=== PATIENT | male | born 1980 | race Caucasian/White ===

== ENCOUNTER → 2020-05-27 | Outpatient (CLI) | payer OTHER ==
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
== END | disposition home or self-care (01) ==
LOC: RADXRMAIN 09:23
PROVIDERS: ATTEND Orthopaedic Surgery
DX: R93.6 Abnormal findings on diagnostic imaging of limbs (principal); M25.762 Osteophyte, left knee

== ENCOUNTER 2021-09-10 11:33 | Emergency (ER) | payer OTHER ==
--- NOTE | 2021-09-10 12:18 | ED ---
General Adult HPI - General Chief complaint: Abdominal Pain Stated complaint: Chest Pain Time Seen by Provider: 09/10/21 11:58 Source: patient, RN notes reviewed Mode of arrival: wheelchair Limitations: no limitations - History of Present Illness Initial comments: 41-year-old male presents to the emergency Department with complaints of generalized pain extending from the shoulders to the pelvis. Patient states this has been an ongoing issue for the past 2 weeks and has been seen by his primary care provider. Reports he is taking Motrin but does not feel like he has made any improvement. States pain is not worsened by activity but is somewhat eased by rest. Patient denies any injury, trauma, fever, chills, difficulty breathing, nausea, vomiting, diarrhea, dysuria, or hematuria. - Related Data Home Medications Medication Instructions Recorded Confirmed Albuterol Inhaler [Ventolin Hfa 2 puff INHALATION RT-Q6H PRN 09/10/21 09/10/21 Inhaler] Aspirin EC [Ecotrin Low Dose] 81 mg PO DAILY 09/10/21 09/10/21 Atorvastatin [Lipitor] 20 mg PO DAILY 09/10/21 09/10/21 Budesonide/Formoterol Fumarate 1 puff INHALATION RT-BID 09/10/21 09/10/21 [Symbicort 160-4.5 Mcg Inhaler] Fluticasone Nasal [place] [Flonase 1 spray EA NOSTRIL DAILY 09/10/21 09/10/21 Nasal [place]] Ibuprofen [Motrin] 800 mg PO Q8H PRN 09/10/21 09/10/21 Omeprazole 20 mg PO DAILY 09/10/21 09/10/21 buPROPion HCL [Wellbutrin XL] 300 mg PO DAILY 09/10/21 09/10/21 lisinopriL [Zestril] 20 mg PO DAILY 09/10/21 09/10/21 metFORMIN HCL [Glucophage] 500 mg PO BID 09/10/21 09/10/21 Previous Rx's Medication Instructions Recorded Ibuprofen [Motrin] 600 mg PO Q8HR PRN #30 tab 09/10/21 Allergies Allergy/AdvReac Type Severity Reaction Status Date / Time No Known Allergies Allergy Verified 09/10/21 12:37 Review of Systems ROS Statement: Those systems with pertinent positive or pertinent negative responses have been documented in the HPI. ROS Other: All systems not noted in ROS Statement are negative. Past Medical History Past Medical History: COPD, Diabetes Mellitus, Hypertension History of Any Multi-Drug Resistant Organisms: None Reported Past Surgical History: Orthopedic Surgery Past Psychological History: Depression Smoking Status: Former smoker Past Alcohol Use History: None Reported Past Drug Use History: None Reported General Exam Limitations: no limitations (This is a well-developed, well-nourished male in no acute distress. Initial temperature 98.0, pulse 94, respirations 20, blood pressure 190/78, pulse ox 96% on room air.) General appearance: alert, in no apparent distress Eye exam: Present: normal appearance, PERRL, EOMI. Absent: scleral icterus, conjunctival injection, periorbital swelling ENT exam: Present: normal exam, normal oropharynx, mucous membranes moist, TM's normal bilaterally Neck exam: Present: normal inspection. Absent: tenderness, meningismus, lymphadenopathy Respiratory exam: Present: normal lung sounds bilaterally. Absent: respiratory distress, wheezes, rales, rhonchi, stridor Cardiovascular Exam: Present: regular rate, normal rhythm, normal heart sounds. Absent: systolic murmur, diastolic murmur, rubs, gallop, clicks GI/Abdominal exam: Present: soft, normal bowel sounds. Absent: distended, tenderness, guarding, rebound, rigid Extremities exam: Present: normal inspection, full ROM, normal capillary refill. Absent: tenderness, pedal edema, joint swelling, calf tenderness Back exam: Present: normal inspection Neurological exam: Present: alert, oriented X3, CN II-XII intact Psychiatric exam: Present: normal affect, normal mood Skin exam: Present: warm, intact, normal color, diaphoretic (Patient is mildly diaphoretic) Course Vital Signs 09/10/21 09/10/21 09/10/21 11:41 13:11 15:47 Temperature 98.0 F 99.0 F Pulse Rate 94 93 89 Respiratory 20 16 18 Rate Blood Pressure 190/78 131/91 118/82 O2 Sat by Pulse 96 96 98 Oximetry 09/10/21 17:01 Temperature 98.8 F Pulse Rate 100 Respiratory 18 Rate Blood Pressure 120/76 O2 Sat by Pulse 96 Oximetry - Reevaluation(s) Reevaluation #1: 09/10/21 12:18 Patient denies need for any pain medication at this time. 09/10/21 15:01 Physical exam findings were discussed with my attending; patient will have CT thorax. Medical Decision Making - Medical Decision Making 41-year-old male presents to the emergency department for evaluation of torso pain. Upon exam, patient is well-appearing and in no acute distress. Pain is not localized to any area and when asked to point to painful region he gestures from his shoulder to his hips. Pain is not worsened with activity or palpation. Patient is mildly diaphoretic, though states this is normal for him. Patient's pain has been ongoing for the past 2 weeks and he has been seen by his primary care provider. Lab work was obtained and is unremarkable. X-rays of the chest, kidneys, ureter, and bladder show no acute process. CT shows no suspicious aortic abnormality. Findings were reviewed with patient. He will be discharged home to follow up with his primary care provider for a recheck. Return parameters were discussed in detail. Patient verbalizes understanding and agrees with this plan. This patient's care was discussed with my attending Dr. Bone. - Lab Data Result diagrams: 09/10/21 12:36 09/10/21 12:36 Lab Results 09/10/21 09/10/21 09/10/21 Range/Units 12:36 12:36 13:08 WBC 10.3 (3.8-10.6) k/uL RBC 5.50 (4.30-5.90) m/uL Hgb 16.1 (13.0-17.5) gm/dL Hct 46.0 (39.0-53.0) % MCV 83.5 (80.0-100.0) fL MCH 29.3 (25.0-35.0) pg MCHC 35.0 (31.0-37.0) g/dL RDW 12.3 (11.5-15.5) % Plt Count 275 (150-450) k/uL MPV 8.4 Neutrophils % 70 % Lymphocytes % 20 % Monocytes % 5 % Eosinophils % 2 % Basophils % 1 % Neutrophils # 7.3 (1.3-7.7) k/uL Lymphocytes # 2.1 (1.0-4.8) k/uL Monocytes # 0.6 (0-1.0) k/uL Eosinophils # 0.2 (0-0.7) k/uL Basophils # 0.1 (0-0.2) k/uL Sodium 135 L (137-145) mmol/L Potassium 4.4 (3.5-5.1) mmol/L Chloride 99 (98-107) mmol/L Carbon Dioxide 22 (22-30) mmol/L Anion Gap 14 mmol/L BUN 15 (9-20) mg/dL Creatinine 0.72 (0.66-1.25) mg/dL Est GFR (CKD-EPI)AfAm >90 (>60 ml/min/1.73 sqM) Est GFR (CKD-EPI)NonAf >90 (>60 ml/min/1.73 sqM) Glucose 171 H (74-99) mg/dL Calcium 10.0 (8.4-10.2) mg/dL Total Bilirubin 0.8 (0.2-1.3) mg/dL AST 72 H (17-59) U/L ALT 43 (4-49) U/L Alkaline Phosphatase 121 (38-126) U/L Troponin I (0.000-0.034) ng/mL Total Protein 7.9 (6.3-8.2) g/dL Albumin 4.5 (3.5-5.0) g/dL Lipase 79 (23-300) U/L Urine Color Yellow Urine Appearance Clear (Clear) Urine pH 6.0 (5.0-8.0) Ur Specific [place] 1.010 (1.001-1.035) Urine Protein Negative (Negative) Urine Glucose (UA) Negative (Negative) Urine Ketones Negative (Negative) Urine Blood Negative (Negative) Urine Nitrite Negative (Negative) Urine Bilirubin Negative (Negative) Urine Urobilinogen <2.0 (<2.0) mg/dL Ur Leukocyte Esterase Negative (Negative) 09/10/21 Range/Units 13:08 WBC (3.8-10.6) k/uL RBC (4.30-5.90) m/uL Hgb (13.0-17.5) gm/dL Hct (39.0-53.0) % MCV (80.0-100.0) fL MCH (25.0-35.0) pg MCHC (31.0-37.0) g/dL RDW (11.5-15.5) % Plt Count (150-450) k/uL MPV Neutrophils % % Lymphocytes % % Monocytes % % Eosinophils % % Basophils % % Neutrophils # (1.3-7.7) k/uL Lymphocytes # (1.0-4.8) k/uL Monocytes # (0-1.0) k/uL Eosinophils # (0-0.7) k/uL Basophils # (0-0.2) k/uL Sodium (137-145) mmol/L Potassium (3.5-5.1) mmol/L Chloride (98-107) mmol/L Carbon Dioxide (22-30) mmol/L Anion Gap mmol/L BUN (9-20) mg/dL Creatinine (0.66-1.25) mg/dL Est GFR (CKD-EPI)AfAm (>60 ml/min/1.73 sqM) Est GFR (CKD-EPI)NonAf (>60 ml/min/1.73 sqM) Glucose (74-99) mg/dL Calcium (8.4-10.2) mg/dL Total Bilirubin (0.2-1.3) mg/dL AST (17-59) U/L ALT (4-49) U/L Alkaline Phosphatase (38-126) U/L Troponin I <0.012 (0.000-0.034) ng/mL Total Protein (6.3-8.2) g/dL Albumin (3.5-5.0) g/dL Lipase (23-300) U/L Urine Color Urine Appearance (Clear) Urine pH (5.0-8.0) Ur Specific [place] (1.001-1.035) Urine Protein (Negative) Urine Glucose (UA) (Negative) Urine Ketones (Negative) Urine Blood (Negative) Urine Nitrite (Negative) Urine Bilirubin (Negative) Urine Urobilinogen (<2.0) mg/dL Ur Leukocyte Esterase (Negative) - EKG Data EKG shows normal: sinus rhythm Rate: normal EKG Comments: EKG was obtained at 1211 and shows normal sinus rhythm. Ventricular rate 83, DC interval 150, QRS duration 88, QT/QTc 360/423. - Radiology Data Radiology results: report reviewed, image reviewed Two-view chest x-ray was obtained. Report was reviewed in its entirety. Impression per Dr. Goel is no acute pulmonary process. KUB x-ray was obtained. Report was reviewed in its entirety. Impression per Dr. Goel is unremarkable abdomen. CT angiogram of the thoracic, abdominal, and pelvic aorta was obtained with contrast. Report was reviewed in its entirety. Impression per Dr. Goel is no suspicious aortic abnormality. Disposition Clinical Impression: Abdominal pain, Chest pain, non-cardiac Disposition: HOME SELF-CARE Condition: Stable Instructions (If sedation given, give patient instructions): Normal Exam (ED) Additional Instructions: Follow-up with primary care provider for recheck if symptoms persist. Return to the emergency department with any new, worsening, or concerning symptoms. Prescriptions: Ibuprofen [Motrin] 600 mg PO Q8HR PRN #30 tab PRN Reason: Pain Is patient prescribed a controlled substance at d/c from ED?: No Referrals: Enoch Kern MD [Primary Care Provider] - 1-2 days Time of Disposition: 16:42
--- NOTE | 2021-09-10 12:59 | XR ---
EXAMINATION TYPE: XR KUB DATE OF EXAM: 09/10/2021 COMPARISON: None INDICATION: Abdomen pain TECHNIQUE: Single view abdomen upright view FINDINGS: There is a normal bowel gas pattern. No suspicious air-fluid levels or differential air-fluid levels are present. No free air is present. Psoas margins are normal. No organomegaly is present. IMPRESSION: 1. Unremarkable Abdomen
[2021-09-10 13:00] LABS: Basophils # (A) 0.1 k/uL (0-0.2); Basophils % (A) 1 %; Eosinophils # (A) 0.2 k/uL (0-0.7); Eosinophils % (A) 2 %; HGB 16.1 gm/dL (13.0-17.5); Lymphocytes # (A) 2.1 k/uL (1.0-4.8); Lymphocytes % (A) 20 %; MCH 29.3 pg (25.0-35.0); MCV 83.5 fL (80.0-100.0); Mean Platelet Volume 8.4; Monocytes # (A) 0.6 k/uL (0-1.0); Monocytes % (A) 5 %; Neutrophils # (A) 7.3 k/uL (1.3-7.7); Neutrophils % (A) 70 %; Platelet Count 275 k/uL (150-450); RDW 12.3 % (11.5-15.5); WBC 10.3 k/uL (3.8-10.6)
--- NOTE | 2021-09-10 13:01 | XR ---
EXAMINATION TYPE: XR chest 2V DATE OF EXAM: 09/10/2021 COMPARISON: None INDICATION: Abdomen pain, chest pain, COPD TECHNIQUE: Frontal and lateral views of the chest are obtained. FINDINGS: The heart size is normal. The pulmonary vasculature is normal. The lungs are clear. There is an old right clavicular fracture. IMPRESSION: 1. No acute pulmonary process.
[2021-09-10 13:17] LABS: ALT 43 U/L (4-49); AST 72 U/L (17-59); African American GFR (CKD) >90 (>60 ml/min/1.73 sqM); Albumin 4.5 g/dL (3.5-5.0); Alkaline Phosphatase 121 U/L (38-126); Anion Gap 14 mmol/L; Blood Urea Nitrogen 15 mg/dL (9-20); Carbon Dioxide 22 mmol/L (22-30); Chloride 99 mmol/L (98-107); Glucose 171 mg/dL (74-99); Lipase 79 U/L (23-300); Non-African American GFR(CKD) >90 (>60 ml/min/1.73 sqM); Potassium 4.4 mmol/L (3.5-5.1); Sodium 135 mmol/L (137-145); Total Bilirubin 0.8 mg/dL (0.2-1.3); Total Protein 7.9 g/dL (6.3-8.2)
[2021-09-10 13:27] LABS: Appearance,Urine Clear (Clear); Bilirubin,Urine Negative (Negative); Blood,Urine Negative (Negative); Color,Urine Yellow; Glucose,Urine (UA) Negative (Negative); Ketones,Urine Negative (Negative); Leukocyte Esterase,Urine Negative (Negative); Nitrite,Urine Negative (Negative); Protein,Urine Negative (Negative); Urobilinogen,Urine <2.0 mg/dL (<2.0)
[2021-09-10 15:50] VITALS: RESP 18
--- NOTE | 2021-09-10 16:09 | CT ---
EXAMINATION TYPE: CT angio thor/abd pel aorta DATE OF EXAM: 09/10/2021 COMPARISON: None HISTORY: chest pain CT DLP: 1637.3 mGycm Automated exposure control for dose reduction was used. Contrast: None Technique: Axial images 3 mm thick sections. Study is performed with intravenous contrast from above the lung apex to the iliac crests. FINDINGS: Ascending thoracic aorta at the level of main pulmonary artery is 3.2 centimeters. the main pulmonary at the bifurcation is 2.8 cm. No aortic dissection is evident. No aneurysmal dilatation is evident. The aorta tapers through the as cending aortic arch and descending thoracic aorta. Abdominal aorta appears normal to the bifurcation. Common iliac internal and external iliac vessels a re patent. Common femoral arteries to the bifurcations are normal. Urinary bladder is unremarkable. Prostate is normal. No free fluid is within the pelvis. Loops of bow el without oral contrast. Normal. The appendix is normal. Kidneys appear normal without masses or cys ts or hydronephrosis. Some fatty infiltration liver may be present. Spleen is unremarkable. Pancreas is unremarkable adrenal glands are normal. Lung windows are clear. IMPRESSION: 1. NO SUSPICIOUS AORTIC ABNORMALITY.
[2021-09-10 17:02] VITALS: BP 120/76; PULSE 100; TEMP 98.8
== END 2021-09-10 17:02 | disposition home or self-care (01) ==
LOC: EC 11:33
DX: R10.9 Unspecified abdominal pain (principal); R07.89 Other chest pain; J44.9 Chronic obstructive pulmonary disease, unspecified; E11.9 Type 2 diabetes mellitus without complications; I10 Essential (primary) hypertension; F32.A Depression, unspecified; Z87.891 Personal history of nicotine dependence; Z79.82 Long term (current) use of aspirin; Z79.51 Long term (current) use of inhaled steroids; Z79.84 Long term (current) use of oral hypoglycemic drugs; Z79.899 Other long term (current) drug therapy
CPT/HCPCS: 36415; 93005; 80053; 83690; 84484; 85025; 81003; 71046; 74018; 71275; 74174; 99285; Q9967

== ENCOUNTER 2021-11-10 01:44 | Observation (INO) | payer OTHER ==
--- NOTE | 2021-11-10 02:35 | XR ---
EXAMINATION TYPE: XR chest 2V DATE OF EXAM: 11/10/2021 COMPARISON: 09/10/2021 HISTORY: Chest pain TECHNIQUE: FINDINGS: Heart and mediastinum are normal. Lungs are clear. Diaphragm is normal. Bony thorax is norm al. IMPRESSION: Normal chest. No change.
[2021-11-10 02:46] LABS: Basophils # (A) 0.1 k/uL (0-0.2); Basophils % (A) 1 %; Eosinophils # (A) 0.3 k/uL (0-0.7); Eosinophils % (A) 3 %; HCT 40.5 % (39.0-53.0); Lymphocytes # (A) 1.7 k/uL (1.0-4.8); Lymphocytes % (A) 17 %; Mean Platelet Volume 8.2; Monocytes # (A) 0.4 k/uL (0-1.0); Monocytes % (A) 4 %; Neutrophils % (A) 72 %; Platelet Count 264 k/uL (150-450); RBC 4.71 m/uL (4.30-5.90); RDW 13.3 % (11.5-15.5); WBC 9.8 k/uL (3.8-10.6)
[2021-11-10 02:58] LABS: ALT 22 U/L (4-49); AST 47 U/L (17-59); African American GFR (CKD) >90 (>60 ml/min/1.73 sqM); Alkaline Phosphatase 147 U/L (38-126); Anion Gap 14 mmol/L; Blood Urea Nitrogen 11 mg/dL (9-20); Calcium 8.7 mg/dL (8.4-10.2); Carbon Dioxide 14 mmol/L (22-30); Chloride 102 mmol/L (98-107); Glucose 271 mg/dL (74-99); Non-African American GFR(CKD) >90 (>60 ml/min/1.73 sqM); Potassium 4.6 mmol/L (3.5-5.1); Sodium 130 mmol/L (137-145); Total Bilirubin 1.2 mg/dL (0.2-1.3); Total Protein 8.2 g/dL (6.3-8.2)
[2021-11-10 03:57] LABS: Partial Thromboplastin Time 23.7 sec (22.0-30.0)
[2021-11-10 04:10] LABS: MCH 29.7 pg (25.0-35.0); MCHC 34.7 g/dL (31.0-37.0)
--- NOTE | 2021-11-10 04:22 | ED ---
Chest Pain HPI - General Chief Complaint: Chest Pain Stated Complaint: Chest Pain Time Seen by Provider: 11/10/21 04:10 Source: patient Mode of arrival: ambulatory - History of Present Illness Initial Comments: This patient is a 41-year-old man who presents to be evaluated for chest pain that is been going approximately 40 some hours. The patient states it had come on at work Monday morning around 9 AM. He indicates substernal and states that it is kind of the tight feeling MD Complaint: chest pain -: hour(s) Pain Location: substernal Pain Radiation: none Severity: moderate Quality: tightness Consistency: constant Improves With: nothing Worsens With: nothing - Related Data Home Medications Medication Instructions Recorded Confirmed Albuterol Inhaler [Ventolin Hfa 2 puff INHALATION RT-Q6H PRN 09/10/21 09/10/21 Inhaler] Aspirin EC [Ecotrin Low Dose] 81 mg PO DAILY 09/10/21 09/10/21 Atorvastatin [Lipitor] 20 mg PO DAILY 09/10/21 09/10/21 Budesonide/Formoterol Fumarate 1 puff INHALATION RT-BID 09/10/21 09/10/21 [Symbicort 160-4.5 Mcg Inhaler] Fluticasone Nasal [place] [Flonase 1 spray EA NOSTRIL DAILY 09/10/21 09/10/21 Nasal [place]] Ibuprofen [Motrin] 800 mg PO Q8H PRN 09/10/21 09/10/21 Omeprazole 20 mg PO DAILY 09/10/21 09/10/21 buPROPion HCL [Wellbutrin XL] 300 mg PO DAILY 09/10/21 09/10/21 lisinopriL [Zestril] 20 mg PO DAILY 09/10/21 09/10/21 metFORMIN HCL [Glucophage] 500 mg PO BID 09/10/21 09/10/21 Previous Rx's Medication Instructions Recorded Ibuprofen [Motrin] 600 mg PO Q8HR PRN #30 tab 09/10/21 Allergies Allergy/AdvReac Type Severity Reaction Status Date / Time No Known Allergies Allergy Verified 11/10/21 01:55 Review of Systems ROS Statement: Those systems with pertinent positive or pertinent negative responses have been documented in the HPI. ROS Other: All systems not noted in ROS Statement are negative. EKG Findings - EKG Results: EKG: interpreted by ERMD, sinus rhythm, normal QRS, normal ST/T EKG shows: tachycardia (Rate 105 bpm) - Blocks, [place], Hypertrophy, ST Abn: QRS axis and voltage: right axis deviation (+90 to +180) Past Medical History Past Medical History: COPD, Diabetes Mellitus, Hypertension History of Any Multi-Drug Resistant Organisms: None Reported Past Surgical History: Orthopedic Surgery Past Psychological History: Depression Smoking Status: Former smoker Past Alcohol Use History: None Reported Past Drug Use History: None Reported Course Vital Signs 11/10/21 01:49 Temperature 98.4 F Pulse Rate 113 H Respiratory 16 Rate Blood Pressure 150/94 O2 Sat by Pulse 95 Oximetry Disposition Clinical Impression: COVID-19, Chest pain, Hyperglycemia due to diabetes mellitus Disposition: ADMITTED IP TO THIS HOSP Condition: Good Instructions (If sedation given, give patient instructions): Coronavirus Disease 2019 (COVID-19) Is patient prescribed a controlled substance at d/c from ED?: No Referrals: Enoch Kern MD [Primary Care Provider] - 1-2 days
[2021-11-10] MEDS ORDERED: NITROGLYCERIN SL TABS 0.4 MG TAB SUBLINGUAL PRN (06:21)
[2021-11-10] MEDS ORDERED: SODIUM CHLORIDE 0.9% 1,000 ML IV SCH (06:30)
[2021-11-10 08:54] LABS: Glucose,Whole Blood 257 mg/dL (75-99)
--- NOTE | 2021-11-10 09:32 | P.CRDCN ---
History of Present Illness History of present illness: This is a 41 year old male with a past medical history of type 2 diabetes, hypertension, dyslipidemia, former tobacco use, Covid-19 last year. 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 We have been consulted for chest pain. Patient tested positive for Covid on Monday10/01/21, had symptoms of body aches, states he stayed home all last week. He states at work yesterday he had constant epigas tric pain that radiated up to the center of his chest, he also had generalized abdominal discomfort. He states his pain was slightly relieved with actually putting pressure on his chest. No specific aggravating factors. He states even with active work, it did not exacerbate his pain. He denies any shortness of breath, palpitations, diaphoresis, nausea or vomiting. He denies any symptoms of syncope or near syncope, orthopnea or PND. He denies any history of CAD, [place] or Stroke. His family history includes 2 uncles had MIs at a younger age. DIAGNOSTICS EKG reveals sinus tachycardia, heart rate 105, T wave inversion in lead III, no acute ST ST-T wave abnormalities to suggest ischemia. Prior EKG with similar findings but not tachycardic Telemetry tracings indicate sinus tachycardia, heart rate 554001 Chest xray no acute cardiopulmonary process. Laboratory reviewed, Covid positive, d-dimer negative, CBC unremarkable, sodium 1:30, potassium 4.6, BUN 11, serum, and 0.4, troponin negative 1 Current home medications include aspirin 81 mg daily, atorvastatin 80 mg daily, lisinopril 20 mg daily, metformin REVIEW OF SYSTEMS At the time of my exam: CONSTITUTIONAL: Denies fever or chills. CARDIOVASCULAR: Denies chest pain, shortness of breath, orthopnea, PND or palpitations. RESPIRATORY: Denies cough. GASTROINTESTINAL: Denies abdominal pain, diarrhea, constipation, nausea or vomiting. MUSCULOSKELETAL: Denies myalgias. NEUROLOGIC: Denies numbness, tingling, headache or weakness. ENDOCRINE: Denies fatigue, weight change, polydipsia or polyurina. GENITOURINARY: Denies burning, hematuria or urgency with micturation. HEMATOLOGIC: Denies history of anemia or bleeding. PHYSICAL EXAMINATION Blood pressure 135/85, heart rate 107, afebrile, oxygen saturation 93% on room air CONSTITUTIONAL: No apparent distress. HEENT: Head is normocephalic. Pupils are equal, round. Sclerae anicteric. Mucous membranes of the mouth are moist. No JVD. No carotid bruit. CHEST EXAMINATION: Lungs are clear to auscultation. No chest wall tenderness is noted on palpation or with deep breathing. HEART EXAMINATION: Regular, tachycardic rate and rhythm. S1, S2 heard. No murmurs, gallops or rub. ABDOMEN: Soft, nontender. Positive bowel sounds. EXTREMITIES: 2+ peripheral pulses, no lower extremity edema and no calf tenderness. SKIN: warm, dry NEUROLOGIC EXAMINATION: Patient is awake, alert and oriented x3. ASSESSMENT Chest pain, atypical, troponin negative 1, EKG does not show signs of acute is chemia Sinus tachycardia Epigastric discomfort Covid-19 infection, tested positive on Monday10/01/21 Type 2 diabetes Hypertension Dyslipidemia PLAN Trend troponins, repeat EKG Obtain 2D echocardiogram and doppler study to assess cardiac structure and function. Continue aspirin, statin and lisinopril Start metoprolol 25mg BID Check Lipid panel Further recommendations based on clinical course Thank you kindly for this consultation. Nurse Practitioner note has been reviewed, I agree with a documented findings and plan of care. Patient was seen and examined. Past Medical History Past Medical History: COPD, Diabetes Mellitus, Hypertension History of Any Multi-Drug Resistant Organisms: None Reported Past Surgical History: Orthopedic Surgery Past Psychological History: Depression Smoking Status: Former smoker Past Alcohol Use History: None Reported Past Drug Use History: None Reported Medications and Allergies Home Medications Medication Instructions Recorded Confirmed Type Albuterol Inhaler [Ventolin Hfa 2 puff INHALATION RT-Q6H PRN 09/10/21 11/10/21 History Inhaler] Aspirin EC [Ecotrin Low Dose] 81 mg PO DAILY 09/10/21 11/10/21 History Budesonide/Formoterol Fumarate 2 puff INHALATION RT-BID 09/10/21 11/10/21 History [Symbicort 160-4.5 Mcg Inhaler] Fluticasone Nasal [place] [Flonase 1 spray EA NOSTRIL DAILY 09/10/21 11/10/21 History Nasal [place]] Ibuprofen [Motrin] 600 mg PO Q8HR PRN #30 tab 09/10/21 11/10/21 Rx Ibuprofen [Motrin] 800 mg PO Q8H PRN 09/10/21 11/10/21 History Omeprazole 20 mg PO DAILY 09/10/21 11/10/21 History buPROPion HCL [Wellbutrin XL] 300 mg PO DAILY 09/10/21 11/10/21 History lisinopriL [Zestril] 20 mg PO DAILY 09/10/21 11/10/21 History metFORMIN HCL [Glucophage] 500 mg PO BID-W/MEALS 09/10/21 11/10/21 History Atorvastatin [Lipitor] 80 mg PO DAILY 11/10/21 11/10/21 History Cyclobenzaprine [Flexeril] 10 mg PO TID PRN 11/10/21 11/10/21 History Allergies Allergy/AdvReac Type Severity Reaction Status Date / Time No Known Allergies Allergy Verified 11/10/21 07:26 Physical Exam Vitals: Vital Signs Temp Pulse Pulse Resp BP Pulse Ox 11/10/21 07:49 103 H 93 L 11/10/21 07:47 103 H 11/10/21 07:10 107 H 18 135/85 93 L 11/10/21 01:49 98.4 F 113 H 16 150/94 95 Intake and Output 11/09/21 11/10/21 11/10/21 22:59 06:59 14:59 Other: Weight 127.006 kg 127.006 kg Results 11/10/21 02:16 11/10/21 02:16 Cardiac Enzymes 11/10/21 11/10/21 Range/Units 02:16 02:16 AST 47 (17-59) U/L Troponin I <0.012 (0.000-0.034) ng/mL Coagulation 11/10/21 Range/Units 02:16 PT (9.0-12.0) sec APTT 23.7 (22.0-30.0) sec CBC 11/10/21 Range/Units 02:16 WBC 9.8 (3.8-10.6) k/uL RBC 4.71 (4.30-5.90) m/uL Hgb 14.0 (13.0-17.5) gm/dL Hct 40.5 (39.0-53.0) % Plt Count 264 (150-450) k/uL Comprehensive Metabolic Panel 11/10/21 Range/Units 02:16 Sodium 130 L (137-145) mmol/L Potassium 4.6 (3.5-5.1) mmol/L Chloride 102 (98-107) mmol/L Carbon Dioxide 14 L (22-30) mmol/L BUN 11 (9-20) mg/dL Creatinine 0.48 L (0.66-1.25) mg/dL Glucose 271 H (74-99) mg/dL Calcium 8.7 (8.4-10.2) mg/dL AST 47 (17-59) U/L ALT 22 (4-49) U/L Alkaline Phosphatase 147 H (38-126) U/L Total Protein 8.2 (6.3-8.2) g/dL Albumin 4.0 (3.5-5.0) g/dL Current Medications Generic Name Dose Route Start Last Admin Trade Name Freq PRN Reason Stop Dose Admin Aspirin 81 mg 11/10/21 09:00 Aspirin 81 Mg PO DAILY [facility] Atorvastatin Calcium 80 mg 11/10/21 09:00 Atorvastatin 80 Mg Tab PO DAILY [facility] Enoxaparin Sodium 40 mg 11/10/21 09:00 Enoxaparin 40 Mg/0.4 Ml Syringe SQ DAILY [facility] Sodium Chloride 1,000 mls @ 20 mls/hr 11/10/21 06:30 Saline 0.9% IV .Q24H [facility] Lisinopril 20 mg 11/10/21 09:00 Lisinopril 20 Mg Tab PO DAILY [facility] Metoprolol Tartrate 25 mg 11/10/21 09:00 Metoprolol Tartrate 25 Mg Tab PO BID [facility] Nitroglycerin 0.4 mg 11/10/21 06:21 Nitroglycerin Sl Tabs 0.4 Mg Tab SUBLINGUAL Q5M PRN Chest Pain Intake and Output 11/09/21 11/10/21 11/10/21 22:59 06:59 14:59 Other: Weight 127.006 kg 127.006 kg Patient Weight 11/11/21 06:59 Weight 127.006 kg 11/10/21 02:16 11/10/21 02:16
[2021-11-10] MEDS: lisinopriL 20 MG TAB PO SCH (09:33)
[2021-11-10] MEDS: ASPIRIN 81 MG PO SCH (09:33)
[2021-11-10] MEDS: METOPROLOL TARTRATE 25 MG TAB PO SCH ×2 (09:33→20:01)
[2021-11-10] MEDS: ENOXAPARIN 40 MG/0.4 ML SYRINGE SQ SCH (09:33)
[2021-11-10] MEDS: ATORVASTATIN 80 MG TAB PO SCH (09:33)
[2021-11-10] MEDS ORDERED: CYCLOBENZAPRINE 10 MG TAB PO PRN (10:57)
[2021-11-10] MEDS ORDERED: ASPIRIN 81 MG PO SCH (11:00)
[2021-11-10] MEDS ORDERED: NALOXONE 0.4 MG/ML 1 ML VIAL IV PRN (11:59)
[2021-11-10] MEDS ORDERED: ACETAMINOPHEN TAB 325 MG TAB PO PRN (11:59)
[2021-11-10] MEDS ORDERED: ALPRAZolam 0.25 MG TAB PO PRN (11:59)
[2021-11-10] MEDS ORDERED: MELATONIN 3 MG TABLET PO PRN (11:59)
[2021-11-10] MEDS ORDERED: ONDANSETRON 4 MG/2 ML VIAL IVP PRN (11:59)
[2021-11-10] MEDS ORDERED: CALCIUM CARBONATE 500 MG CHEWABLE PO PRN (11:59)
[2021-11-10] MEDS ORDERED: LACTULOSE 20 GM/30 ML CUP PO PRN (11:59)
[2021-11-10 12:10] LABS: Glucose,Whole Blood 404 mg/dL (75-99)
[2021-11-10] MEDS: dexAMETHasone 2 MG TAB PO SCH (12:49)
[2021-11-10] MEDS: PANTOPRAZOLE 40 MG TABLET PO SCH (12:50)
[2021-11-10] MEDS: metFORMIN 500 MG TAB PO SCH ×2 (12:50→17:31)
[2021-11-10] MEDS: buPROPion XL 300 MG TAB.ER.24H PO SCH (12:51)
[2021-11-10] MEDS: INSULIN ASPART (NovoLOG) 100 UNIT/ML VIAL SQ SCH ×2 (12:51→17:31)
[2021-11-10] MEDS: ALBUTEROL HFA INHALER INHALATION PRN ×2 (15:52→20:15)
[2021-11-10] MEDS: SYMBICORT 160-4.5 MCG INHALER INHALATION SCH ×2 (15:59→20:15)
[2021-11-10 17:08] LABS: Glucose,Whole Blood 281 mg/dL (75-99)
--- NOTE | 2021-11-10 20:36 | P.HPIM ---
History of Present Illness H&P Date: 11/10/21 Chief Complaint: Squeezing sensation This is a pleasant 41-year-old patient of Dr. Kern.. Chronic medical conditions include spasms, diabetes, hypertension, hyperlipidemia, depression. Patient started with the squeezing sensation in the epigastric area and [place] in the lower chest. It was coming on and off and progressively got worse. It did radiate to his back. No dizziness nor lightheadedness no perspiration or shortness of breath. Systems persisted the whole day and when he decided to come in. Denies any cough shortness of breath. No fever no chills. Patient did test positive for COVID-19 in the ER. Patient did not take the COVID-19 vaccine. Denies any prior cardiac history. Review of systems: GEN.: Tired EYES: None HEENT: None NECK: None RESPIRATORY: None CARDIOVASCULAR: As above GASTROINTESTINAL: None GENITOURINARY: None MUSCULOSKELETAL: [Does get muscle spasms LYMPHATICS: None HEMATOLOGICAL: None PSYCHIATRY: None NEUROLOGICAL: None Past medical history to include: COPD, diabetes, hypertension, depression, muscle spasms Social history: Patient works at a [employer] with [employer]. Lives with his and mother. Smoked a pack a day for 27 years stopped one year ago. No alcohol. Family history: Reviewed, noncontributory to presentation Physical examination: VITAL SIGNS: 98.4, 113, 16, 150/94, 95 % on room air GENERAL: BMI 36.9, sitting at edge of the bed, awake, not in distress. EYES: Pupils equal. Conjunctiva normal. HEENT: External appearance of nose and ears normal, oral cavity grossly normal. NECK: JVD not raised; masses not palpable. HEART: First and second heart sounds are normal; no edema. LUNGS: Respiratory rate normal; decreased breath sounds. ABDOMEN: Soft, nontender, liver spleen not palpable, no masses palpable. PSYCH: Alert and oriented x3; mood and affect normal. MUSCULOSKELETAL:No Clubbing/cyanosis;muscles-grossly intact NEUROLOGICAL: Cranial nerves grossly intact; no facial asymmetry, power and sensation grossly intact. LYMPHATICS: No lymph nodes palpable in the axilla and neck INVESTIGATIONS, reviewed in the clinical context: White count 9.8 hemoglobin 14 platelets 264 sodium 1:30 potassium 4.6 creatinine 0.48 blood glucose 271 Troponin I less than 0.012, 0.015, less than 0.012 D-dimer 0.31 Coronavirus [PCR]: Detected EKG tracing personally reviewed by me-normal sinus rhythm. Heart rate 105 Chest x-ray film personally reviewed by me-no infiltrates Assessment and plan: -Anterior chest wall pain/possible unstable angina. Cardiac risk factors include obesity, ex-smoker, diabetes, hypertension. Telemetry. Cardiology consulted. -Asymptomatic COVID-19 with good pulse ox. Patient has no respiratory symptoms. He's had one or 2 readings of 94% and 93%. Has full give a short course of dexamethasone. -Obesity BMI 36.9 Weight loss measures -Diabetes mellitus type 2 Metformin 5 mg by mouth twice a day follow Accu-Cheks -GERD Omeprazole 20 mg daily -COPD in a previous smoker Symbicort 1654.52 puffs twice a day. Ventolin ER and -Depression otherwise specified Wellbutrin XL 300 mg a day -Essential hypertension Zestril 20 mg daily Home medications resumed. Dexamethasone. Telemetry. Cardiology consulted. 2- D echocardiogram. Metoprolol added. Aspirin. Past Medical History Past Medical History: COPD, Diabetes Mellitus, Hypertension History of Any Multi-Drug Resistant Organisms: None Reported Past Surgical History: Orthopedic Surgery Past Psychological History: Depression Smoking Status: Former smoker Past Alcohol Use History: None Reported Past Drug Use History: None Reported Medications and Allergies Home Medications Medication Instructions Recorded Confirmed Type Albuterol Inhaler [Ventolin Hfa 2 puff INHALATION RT-Q6H PRN 09/10/21 11/10/21 History Inhaler] Aspirin EC [Ecotrin Low Dose] 81 mg PO DAILY 09/10/21 11/10/21 History Budesonide/Formoterol Fumarate 2 puff INHALATION RT-BID 09/10/21 11/10/21 History [Symbicort 160-4.5 Mcg Inhaler] Fluticasone Nasal [place] [Flonase 1 spray EA NOSTRIL DAILY 09/10/21 11/10/21 History Nasal [place]] Ibuprofen [Motrin] 600 mg PO Q8HR PRN #30 tab 09/10/21 11/10/21 Rx Ibuprofen [Motrin] 800 mg PO Q8H PRN 09/10/21 11/10/21 History Omeprazole 20 mg PO DAILY 09/10/21 11/10/21 History buPROPion HCL [Wellbutrin XL] 300 mg PO DAILY 09/10/21 11/10/21 History lisinopriL [Zestril] 20 mg PO DAILY 09/10/21 11/10/21 History metFORMIN HCL [Glucophage] 500 mg PO BID-W/MEALS 09/10/21 11/10/21 History Atorvastatin [Lipitor] 80 mg PO DAILY 11/10/21 11/10/21 History Cyclobenzaprine [Flexeril] 10 mg PO TID PRN 11/10/21 11/10/21 History Allergies Allergy/AdvReac Type Severity Reaction Status Date / Time No Known Allergies Allergy Verified 11/10/21 07:26 Physical Exam Vitals: Vital Signs Temp Pulse Pulse Resp BP Pulse Ox 11/10/21 07:49 103 H 93 L 11/10/21 07:47 103 H 11/10/21 07:10 107 H 18 135/85 93 L 11/10/21 01:49 98.4 F 113 H 16 150/94 95 Intake and Output 11/09/21 11/10/21 11/10/21 22:59 06:59 14:59 Other: Weight 127.006 kg 127.006 kg Results CBC & Chem 7: 11/10/21 02:16 11/10/21 02:16 Labs: Abnormal Lab Results - Last 24 Hours (Table) 11/10/21 11/10/21 11/10/21 Range/Units 02:16 05:29 08:52 Sodium 130 L (137-145) mmol/L Carbon Dioxide 14 L (22-30) mmol/L Creatinine 0.48 L (0.66-1.25) mg/dL Glucose 271 H (74-99) mg/dL POC Glucose (mg/dL) 257 H (75-99) mg/dL Alkaline Phosphatase 147 H (38-126) U/L Coronavirus (PCR) Detected A (Not Detectd) Thrombosis Risk Factor Assmnt - Choose All That Apply Any of the Below Risk Factors Present?: Yes Each Factor Represents 1 point: Obesity (BMI >25) Other Risk Factors: No Thrombosis Risk Factor Assessment Total Risk Factor Score: 1 Thrombosis Risk Factor Assessment Level: Low Risk
[2021-11-10 20:52] LABS: Glucose,Whole Blood 364 mg/dL (75-99)
[2021-11-10] MEDS ORDERED: INSULIN ASPART (NovoLOG) 100 UNIT/ML VIAL SQ ONE (21:19)
[2021-11-10] MEDS ORDERED: INSULIN DETEMIR (LEVEMIR) 100 UNIT/ML SYR SQ ONE (21:30)
[2021-11-10 23:05] VITALS: RESP 18
[2021-11-11 01:38] LABS: Glucose,Whole Blood 390 mg/dL (75-99)
[2021-11-11 02:32] VITALS: TEMP 98.1
[2021-11-11 07:25] LABS: Glucose,Whole Blood 343 mg/dL (75-99)
[2021-11-11] MEDS: INSULIN ASPART (NovoLOG) 100 UNIT/ML VIAL SQ SCH ×2 (08:24→13:22)
[2021-11-11] MEDS: ATORVASTATIN 80 MG TAB PO SCH (08:27)
[2021-11-11] MEDS: ENOXAPARIN 40 MG/0.4 ML SYRINGE SQ SCH (08:27)
[2021-11-11] MEDS: ASPIRIN 81 MG PO SCH (08:28)
[2021-11-11] MEDS: lisinopriL 20 MG TAB PO SCH (08:28)
[2021-11-11] MEDS: metFORMIN 500 MG TAB PO SCH (08:28)
[2021-11-11] MEDS: METOPROLOL TARTRATE 25 MG TAB PO SCH (08:29)
[2021-11-11] MEDS: buPROPion XL 300 MG TAB.ER.24H PO SCH (08:29)
[2021-11-11] MEDS: PANTOPRAZOLE 40 MG TABLET PO SCH (08:29)
[2021-11-11] MEDS: dexAMETHasone 2 MG TAB PO SCH (08:30)
[2021-11-11] MEDS: ALBUTEROL HFA INHALER INHALATION PRN (08:34)
[2021-11-11] MEDS: SYMBICORT 160-4.5 MCG INHALER INHALATION SCH (08:34)
[2021-11-11] MEDS ORDERED: ASPIRIN 325 MG TAB PO SCH (09:00)
--- NOTE | 2021-11-11 10:00 | ECHOF ---
Referral Reason:chest pain MEASUREMENTS -------- HEIGHT: 0.0 cm WEIGHT: 0.0 kg BP: 135/85 IVSd: 1.5 cm (0.6 - 1.1) LVIDd: 4.2 cm (3.9 - 5.3) LVPWd: 1.1 cm (0.6 - 1.1) IVSs: 1.7 cm LVIDs: 3.1 cm LVPWs: 1.7 cm Ao Diam: 3.1 cm (2.0 - 3.7) AV Cusp: 1.6 cm (1.5 - 2.6) LA Diam: 4.3 cm (2.7 - 3.8) RAP: 5.00 mmHg RVSP: 15.58 mmHg FINDINGS -------- This was a technically difficult study with suboptimal views. The left ventricular size is normal. There is mild concentric left ventricular hypertrophy. Overa ll left ventricular systolic function is low-normal with, an EF between 50 - 55 %. Atypical septal wall motion 5.0mg of Lumason was utilized for enhancement of images The aortic valve was not well visualized. There is no evidence of aortic regurgitation. There is no evidence of aortic stenosis. No mitral regurgitation. Mild tricuspid regurgitation present. There is no evidence of pulmonary hypertension. The right v entricular systolic pressure, as measured by Doppler, is 15.58mmHg. The pulmonic valve was not well visualized. There is no pericardial effusion. CONCLUSIONS -------- 1. The left ventricular size is normal. 2. There is mild concentric left ventricular hypertrophy. 3. Overall left ventricular systolic function is low-normal with, an EF between 50 - 55 %. 4. Atypical septal wall motion 5. Mild tricuspid regurgitation present. COORDINATING PRODUCER: Micheline Guzman RDCS
--- NOTE | 2021-11-11 12:10 | P.PN ---
Subjective This is a 41 year old male with a past medical history of type 2 diabetes, hypertension, dyslipidemia, former tobacco use, Covid-19 last year. 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 We have been consulted for chest pain. Patient tested positive for Covid on Monday10/01/21, had symptoms of body aches, states he stayed home all last week. He states at work yesterday he had constant epigastric pain that radiated up to the center of his chest, he also had generalized abdominal discomfort. EKG revealed sinus tachycardia, heart rate 105, T wave inversion in lead III, no acute ST ST-T wave abnormalities to suggest ischemia. Prior EKG with similar findings but not tachycardic. Chest xray no acute cardiopulmonary process. His Covid-19 rapid test positive. Troponin was negative x 3. Patient seen and examined at bedside, no acute distress. No further chest pain. Denies shortness of breath, lightheadedness, dizziness, or palpitations. Telemetry reviewed, patient in sinus mechanism HR 80s-100. He is currently maintained on aspirin 81 mg daily, atorvastatin 80 mg daily, lisinopril 20 mg daily, metoprolol tartrate 25 mg twice a day. Echocardiogram revealed EF of 5055%, atypical septal wall motion, mild tricuspid regurgitation. PHYSICAL EXAMINATION Blood pressure 113/69 HR 93, afebrile, oxygen saturation greater than 92% on room air CONSTITUTIONAL: No apparent distress. HEENT: Neck Supple. No JVD. No carotid bruit. CHEST EXAMINATION: Lungs are clear to auscultation. No chest wall tenderness is noted on palpation or with deep breathing. HEART EXAMINATION: Regular rate and rhythm. S1, S2 heard. No murmurs, gallops or rub. ABDOMEN: Soft, nontender. Positive bowel sounds. EXTREMITIES: 2+ peripheral pulses, no lower extremity edema and no calf tenderness. SKIN: warm, dry NEUROLOGIC EXAMINATION: Patient is awake, alert and oriented x3. ASSESSMENT Chest pain, atypical, troponin negative 3, EKG does not show signs of acute isc hemia, Echocardiogram revealed normal left ventricular systolic function. Sinus tachycardia Epigastric discomfort Covid-19 infection, tested positive on Monday10/01/21 Type 2 diabetes Hypertension Dyslipidemia PLAN From a cardiology perspective, patient is stable to be discharged home on current medication regimen aspirin, statin, ACEI and beta gavino. Patient to follow up outpatient with Dr. Villanueva and stress test can be performed in the outpatient setting. Nurse Practitioner note has been reviewed, I agree with a documented findings and plan of care. Patient was seen and examined. Objective - Vital Signs Vital signs: Vital Signs Temp 98.1 F 11/11/21 07:15 Pulse 90 11/11/21 08:23 Resp 18 11/11/21 07:15 BP 113/69 11/11/21 07:15 Pulse Ox 93 L 11/11/21 07:15 Intake & Output 11/10/21 11/11/21 11/11/21 18:59 06:59 18:59 Intake Total 118 118 Balance 118 118 Weight 127.006 kg Intake: Oral 118 118 Other: # Voids 1 2 - Labs CBC & Chem 7: 11/10/21 02:16 11/10/21 02:16 Labs: Abnormal Lab Results - Last 24 Hours (Table) 11/10/21 11/10/21 11/10/21 Range/Units 12:08 17:06 20:52 POC Glucose (mg/dL) 404 H 281 H 364 H (75-99) mg/dL 11/11/21 11/11/21 Range/Units 01:36 07:24 POC Glucose (mg/dL) 390 H 343 H (75-99) mg/dL
[2021-11-11 12:50] LABS: Glucose,Whole Blood 325 mg/dL (75-99)
[2021-11-11 13:44] VITALS: PULSE 92
[2021-11-11 13:45] VITALS: BP 136/78
[2021-11-11 15:23] LABS: Triglycerides >4425.00 mg/dL (0.00-149.00)
--- NOTE | 2021-11-11 16:39 | P.DS ---
Providers Date of admission: 11/10/21 06:21 Expected date of discharge: 11/11/21 Attending physician: Raymundo Hargrove Consults: 11/10/21 06:21 Consult Physician Routine Consulting Provider: Luiz Arredondo Consult Reason/Comments: chest pain Do you want consulting provider notified?: Yes Primary care physician: Enoch [place] [facility] Course: Chief Complaint: Squeezing sensation This is a pleasant 41-year-old patient of Dr. Kern.. Chronic medical conditions include spasms, diabetes, hypertension, hyperlipidemia, depression. Patient started with the squeezing sensation in the epigastric area and mainly in the lower chest. It was coming on and off and progressively got worse. It did radiate to his back. No dizziness nor lightheadedness no perspiration or shortness of breath. Systems persisted the whole day and when he decided to come in. Denies any cough shortness of breath. No fever no chills. Patient did test positive for COVID-19 in the ER. Patient did not take the COVID-19 vaccine. Denies any prior cardiac history. Patient has no COVID-19 symptoms. November 11. No further symptoms. No shortness of breath. No cough. Pulse ox 94% room air. Patient was cleared by cardiology for discharge. Outpatient stress test. Discussed with patient. Consultation: Dr. 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 Smoked a pack a day for 27 years stopped one year ago. No alcohol. Family history: Reviewed, noncontributory to presentation Physical examination: VITAL SIGNS: 98.1, 92, 18, 136/78, 94% room air GENERAL: Sitting up, comfortable EYES: Pupils equal. Conjunctiva normal. HEENT: External appearance of nose and ears normal, oral cavity grossly normal. NECK: JVD not raised; masses not palpable. HEART: First and second heart sounds are normal; no edema. LUNGS: Respiratory rate normal; decreased breath sounds. ABDOMEN: Soft, nontender, liver spleen not palpable, no masses palpable. PSYCH: Alert and oriented x3; mood and affect normal. MUSCULOSKELETAL:No Clubbing/cyanosis;muscles-grossly intact INVESTIGATIONS, reviewed in the clinical context: 2-D echocardiogram: EF 50-55%. Atypical septal wall motion. White count 9.8 hemoglobin 14 platelets 264 sodium 1:30 potassium 4.6 creatinine 0.48 blood glucose 271 Troponin I less than 0.012, 0.015, less than 0.012 D-dimer 0.31 Coronavirus [PCR]: Detected EKG tracing personally reviewed by me-normal sinus rhythm. Heart rate 105 Chest x-ray film personally reviewed by me-no infiltrates Assessment and plan: -Anterior chest wall pain/possible unstable angina. Cardiac risk factors includ e obesity, ex-smoker, diabetes, hypertension. Patient seen by cardiology. Patient to follow-up outpatient. -Asymptomatic COVID-19 with good pulse ox. Patient has no respiratory symptoms. -Obesity BMI 36.9 Weight loss measures -Diabetes mellitus type 2 Metformin 500 mg by mouth twice a day follow Accu-Cheks -GERD Omeprazole 20 mg daily -COPD in a previous smoker Symbicort 1654.52 puffs twice a day. Ventolin ER and -Depression otherwise specified Wellbutrin XL 300 mg a day -Essential hypertension Zestril 20 mg daily Disposition: Home Plan - Discharge Summary Discharge Rx Participant: No New Discharge Prescriptions: New Metoprolol Tartrate [Lopressor] 25 mg PO BID 30 Days #60 tab Nitroglycerin Sl Tabs [Nitrostat] 0.4 mg SUBLINGUAL Q5M PRN #30 tab PRN Reason: Chest Pain Continue lisinopriL [Zestril] 20 mg PO DAILY Omeprazole 20 mg PO DAILY Albuterol Inhaler [Ventolin Hfa Inhaler] 2 puff INHALATION RT-Q6H PRN PRN Reason: Shortness Of Breath Ibuprofen [Motrin] 600 mg PO Q8HR PRN #30 tab PRN Reason: Pain Atorvastatin [Lipitor] 80 mg PO DAILY metFORMIN HCL [Glucophage] 500 mg PO BID-W/MEALS Budesonide/Formoterol Fumarate [Symbicort 160-4.5 Mcg Inhaler] 2 puff INHALATION RT-BID Aspirin EC [Ecotrin Low Dose] 81 mg PO DAILY buPROPion HCL [Wellbutrin XL] 300 mg PO DAILY Fluticasone Nasal [place] [Flonase Nasal [place]] 1 spray EA NOSTRIL DAILY Cyclobenzaprine [Flexeril] 10 mg PO TID PRN PRN Reason: Muscle Spasm Discontinued Ibuprofen [Motrin] 800 mg PO Q8H PRN PRN Reason: Pain Discharge Medication List Albuterol Inhaler [Ventolin Hfa Inhaler] 2 puff INHALATION RT-Q6H PRN 09/10/21 [History] Aspirin EC [Ecotrin Low Dose] 81 mg PO DAILY 09/10/21 [History] Budesonide/Formoterol Fumarate [Symbicort 160-4.5 Mcg Inhaler] 2 puff INHALATION RT-BID 09/10/21 [History] Fluticasone Nasal [place] [Flonase Nasal [place]] 1 spray EA NOSTRIL DAILY 09/10/21 [History] Ibuprofen [Motrin] 600 mg PO Q8HR PRN #30 tab 09/10/21 [Rx] Omeprazole 20 mg PO DAILY 09/10/21 [History] buPROPion HCL [Wellbutrin XL] 300 mg PO DAILY 09/10/21 [History] lisinopriL [Zestril] 20 mg PO DAILY 09/10/21 [History] metFORMIN HCL [Glucophage] 500 mg PO BID-W/MEALS 09/10/21 [History] Atorvastatin [Lipitor] 80 mg PO DAILY 11/10/21 [History] Cyclobenzaprine [Flexeril] 10 mg PO TID PRN 11/10/21 [History] Metoprolol Tartrate [Lopressor] 25 mg PO BID 30 Days #60 tab 11/11/21 [Rx] Nitroglycerin Sl Tabs [Nitrostat] 0.4 mg SUBLINGUAL Q5M PRN #30 tab 11/11/21 [Rx] Follow up Appointment(s)/Referral(s): Enoch Kern MD [Primary Care Provider] - 1-2 days Dion Villanueva MD [STAFF PHYSICIAN] - 2 Weeks (Dr Winston office to call with appt date.) Patient Instructions/Handouts: Coronavirus Disease 2019 (COVID-19) Activity/Diet/Wound Care/Special Instructions: Heart Healthy diet. activity as tolerated. Nothing strenuous. Follow up with your family this week. Dr Villanueva's office to call you with an appointment. Call your DR with return or worsening of the symptoms that brought you here or any concerns. received a dose of metoprolol this am. scripts have been e scribed for you,
== END 2021-11-11 14:02 ==
LOC: EC 01:44 → 6NMEDSUR 06:21
PROVIDERS: ADMIT Hospitalist; ATTEND Hospitalist
DX: R07.89 Other chest pain (principal); R07.2 Precordial pain; U07.1 COVID-19; E66.9 Obesity, unspecified; Z68.36 Body mass index [BMI] 36.0-36.9, adult; E11.65 Type 2 diabetes mellitus with hyperglycemia; K21.9 Gastro-esophageal reflux disease without esophagitis; J44.9 Chronic obstructive pulmonary disease, unspecified; F32.A Depression, unspecified; I10 Essential (primary) hypertension; E78.5 Hyperlipidemia, unspecified; R00.0 Tachycardia, unspecified; M62.838 Other muscle spasm; I07.1 Rheumatic tricuspid insufficiency; Z87.891 Personal history of nicotine dependence; Z79.82 Long term (current) use of aspirin; Z79.899 Other long term (current) drug therapy; Z79.51 Long term (current) use of inhaled steroids; Z79.84 Long term (current) use of oral hypoglycemic drugs; Z82.49 Family history of ischemic heart disease and other diseases of the circulatory system
CPT/HCPCS: 96372 ×2; 99285; 36415; 94640 ×4; 93005; 93308; 85379; 80061; 80053; 84484; 85025; 85610; 85730; 83721; 87635; 71046; G0378 ×2; J1650 ×2; J8540 ×2; Q9950

== ENCOUNTER → 2021-12-10 | Outpatient (CLI) | payer OTHER ==
[2021-12-10 18:52] LABS: HCT 46.3 % (39.6-50.0); HGB 14.8 g/dL (13.0-17.0); MCH 28.2 pg (27.0-32.0); MCV 88.4 fL (80.0-97.0); Mean Platelet Volume 10.6 fL (9.5-12.2); NRBC Per 100 WBC 0 /100 WBCS (0.0-0.0); Platelet Count 261 X 10*3/uL (140-440); RBC 5.24 X 10*6/uL (4.40-5.60); RDW 12.9 % (11.5-14.5); WBC 10.02 X 10*3/uL (4.50-10.00)
[2021-12-10 19:00] LABS: African American GFR (CKD) 129.5 (60.0-200.0); Blood Urea Nitrogen 8.3 mg/dL (9.0-27.0); Non-African American GFR(CKD) 111.7 (60.0-200.0); Potassium 4.1 mmol/L (3.5-5.5)
== END | disposition home or self-care (01) ==
LOC: LABPAT 11:27
PROVIDERS: ATTEND Internal Medicine Cardiovascular Disease
DX: Z01.812 Encounter for preprocedural laboratory examination (principal); R07.2 Precordial pain
CPT/HCPCS: 80051; 82565; 84520; 85027

== ENCOUNTER 2021-12-17 08:51 | Day surgery (SDC) | payer OTHER ==
[~2021-12-17 08:51] MED LIST: ALPRAZolam 0.25 MG TAB PO PRN; ALPRAZolam 0.5 MG TAB PO PRN; ASPIRIN 325 MG TAB PO STA; HEPARIN SODIUM,PORCINE 10,000 UNIT in SODIUM CHLORIDE 0.9% 1,000 ML IRRIGATION PRN; HEPARIN SODIUM,PORCINE 2,500 UNIT in SODIUM CHLORIDE 0.9% 250 ML IRRIGATION PRN; NITROGLYCERIN SL TABS 0.4 MG TAB SUBLINGUAL PRN; SODIUM CHLORIDE 0.9% 1,000 ML in EMPTY BAG 1 BAG IV SCH
[2021-12-17 09:45] LABS: Glucose,Whole Blood 131 mg/dL (75-99)
[2021-12-17 09:46] VITALS: TEMP 98.3
[2021-12-17] MEDS ORDERED: SODIUM CHLORIDE 0.9% 1,000 ML IV ONE (09:48)
[2021-12-17] MEDS ORDERED: LIDOCAINE 1% INJ 10MG/ML (20 ML MDV) ONE (10:23)
[2021-12-17] MEDS ORDERED: VERAPAMIL 2.5 MG/ML 2 ML AMP ONE (10:23)
[2021-12-17] MEDS ORDERED: fentaNYL (PF) 50 MCG/ML 2 ML AMP ONE (10:35)
[2021-12-17] MEDS ORDERED: LIDOCAINE 1% INJ 10MG/ML (20 ML MDV) SQ ONE ×2 (10:37→10:38)
[2021-12-17] MEDS ORDERED: MIDAZOLAM 2 MG/2 ML VIAL IV ONE (10:37)
[2021-12-17] MEDS ORDERED: fentaNYL (PF) 50 MCG/ML 2 ML AMP IV ONE (10:37)
[2021-12-17] MEDS ORDERED: VERAPAMIL SYRINGE (5 MG/10 ML) INTRAARTER ONE (10:40)
[2021-12-17] MEDS ORDERED: HEPARIN SODIUM 1,000 UN/ML (10ML VL) ONE (10:44)
[2021-12-17] MEDS ORDERED: HEPARIN SODIUM 1,000 UN/ML (10ML VL) IV ONE (10:45)
[2021-12-17] MEDS ORDERED: IOPAMIDOL-370 125ML BTL INJ ONE (10:51)
[2021-12-17 12:17] VITALS: RESP 18
[2021-12-17] MEDS ORDERED: ACETAMINOPHEN TAB 500 MG TAB PO ONE (13:57)
--- NOTE | 2021-12-17 14:05 | CC ---
CARDIAC CATHETERIZATION REPORT REFERRING PHYSICIAN: Dr. Enoch Kern. INDICATION: Chest pain with abnormal stress test showing ischemia in diagonal distribution. PROCEDURE NOTE: After obtaining informed consent, left heart catheterization, coronary angiogram are performed via the right radial artery using standard Corinne catheters. The patient tolerated the procedure well without any obvious immediate complications. A size 3 and half Corinne catheters were used to engage the right and left coronaries and a pigtail catheter was used to obtain hemodynamics. The patient received moderate conscious sedation. Total sedation time was 18 minutes. Using a micropuncture needle, arterial access was obtained into the right radial artery and under fluoroscopic guidance, wires and catheters were floated into the ascending aorta and catheters were exchanged there. The patient received 5 mg of verapamil and 5000 units of IV heparin as per protocol and a TR band was applied as per the standard guidelines. FINDINGS: HEMODYNAMICS: Left ventricular end-diastolic pressure is 12-14 mm. There is no significant gradient across the aortic valve. LEFT VENTRICULOGRAM: Not performed. ANGIOGRAPHIC DATA: LEFT MAIN CORONARY ARTERY: Left main coronary artery is a normal-sized vessel and is free of stenosis. Divides into left anterior descending coronary artery and circumflex coronary artery. LEFT ANTERIOR DESCENDING CORONARY ARTERY: LAD and its branches, circumflex coronary artery and its branches are free of significant stenosis. RIGHT CORONARY ARTERY: Right coronary artery is a dominant vessel and is free of significant disease. CONCLUSION: 1. Normal coronary arteries. 2. Falsely positive stress test. 3. Medical therapy. MMODL / IJN: [id number] /
[2021-12-17] MEDS ORDERED: RX INFO: IV CONTRAST WAS GIVEN 1 EACH MISC MISCELLANE PRN (14:18)
[2021-12-17] MEDS ORDERED: SODIUM CHLORIDE 0.9% 1,000 ML IV SCH (14:30)
[2021-12-17 14:34] VITALS: BP 118/72; PULSE 85
== END 2021-12-17 14:44 | disposition home or self-care (01) ==
LOC: CATHCVL 08:51
PROVIDERS: ATTEND Internal Medicine Cardiovascular Disease
DX: I99.8 Other disorder of circulatory system (principal)
CPT/HCPCS: 93458; C1894; J2250; J2001; J3010; J1644; Q9967

== ENCOUNTER 2022-08-16 06:44 | Emergency (ER) | payer OTHER ==
[2022-08-16] MEDS ORDERED: MECLIZINE 12.5 MG TAB PO STA (07:11)
[2022-08-16] MEDS ORDERED: SODIUM CHLORIDE 0.9% 1,000 ML IV STA (07:11)
--- NOTE | 2022-08-16 07:30 | XR ---
EXAMINATION TYPE: XR chest 2V DATE OF EXAM: 08/16/2022 COMPARISON: Chest x-ray November 10, 2021 HISTORY: Lightheadedness. TECHNIQUE: Frontal and lateral views of the chest are obtained. FINDINGS: Low lung volumes are redemonstrated. There is no suspicious focal air space opacity, pleur al effusion, or pneumothorax seen. The cardiac silhouette size is stable and within normal limits. M ultilevel spurring in the thoracic spine is redemonstrated. IMPRESSION: No acute process. No significant change from prior.
--- NOTE | 2022-08-16 07:31 | XR ---
EXAMINATION TYPE: XR KUB DATE OF EXAM: 08/16/2022 7:19 AM CLINICAL HISTORY: Weakness and pain. TECHNIQUE: Two Upright KUB images of the abdomen are obtained. COMPARISON: Abdominal x-ray and CT September 10, 2021. FINDINGS: Scattered gas is seen in non-distended small and large bowel loops. There is no visceromega ly, pneumoperitoneum, or abnormal calcification appreciated. The lung bases are clear and the osseous structures are intact. IMPRESSION: Overall nonobstructive bowel gas pattern redemonstrated.
[2022-08-16 08:04] LABS: Basophils # (A) 0.2 k/uL (0-0.2); Basophils % (A) 2 %; Eosinophils # (A) 0.6 k/uL (0-0.7); Eosinophils % (A) 8 %; HCT 47.6 % (39.0-53.0); HGB 16.6 gm/dL (13.0-17.5); Lymphocytes # (A) 1.7 k/uL (1.0-4.8); Lymphocytes % (A) 21 %; MCH 29.8 pg (25.0-35.0); MCHC 34.9 g/dL (31.0-37.0); MCV 85.4 fL (80.0-100.0); Mean Platelet Volume 8.6; Monocytes # (A) 0.5 k/uL (0-1.0); Monocytes % (A) 7 %; Neutrophils % (A) 61 %; Platelet Count 263 k/uL (150-450); RBC 5.57 m/uL (4.30-5.90); RDW 12.5 % (11.5-15.5); WBC 8.3 k/uL (3.8-10.6)
[2022-08-16 08:17] LABS: ALT 17 U/L (4-49); AST 27 U/L (17-59); African American GFR (CKD) >90 (>60 ml/min/1.73 sqM); Albumin 4.7 g/dL (3.5-5.0); Alkaline Phosphatase 109 U/L (38-126); Anion Gap 9 mmol/L; Blood Urea Nitrogen 17 mg/dL (9-20); Calcium 9.3 mg/dL (8.4-10.2); Carbon Dioxide 21 mmol/L (22-30); Chloride 108 mmol/L (98-107); Glucose 118 mg/dL (74-99); Non-African American GFR(CKD) >90 (>60 ml/min/1.73 sqM); Potassium 5.3 mmol/L (3.5-5.1); Sodium 138 mmol/L (137-145); Total Bilirubin 0.6 mg/dL (0.2-1.3); Total Protein 7.4 g/dL (6.3-8.2)
--- NOTE | 2022-08-16 08:28 | ED ---
General Adult HPI - General Chief complaint: Dizziness Stated complaint: Light-headed, not feeling right Time Seen by Provider: 08/16/22 07:01 Source: patient, RN notes reviewed Mode of arrival: ambulatory - History of Present Illness Initial comments: 82-year-old male presents emergency Department chief complaint of not feeling right. Patient states she is driving states that he started getting warm sensation in his legs ecchymosis to his abdomen. He states that he became l ightheaded, dizzy felt she's had a pass out. Patient states symptoms only lasted a minute or so and resolved. He denies any complaints chest pain, nausea vomiting diarrhea. He states when he had sensation felt like he needs to have a bowel movement. He has with his been having some intermittent GI issues in which he states he gets abdominal pain, bloating. Patient is known diabetic, history of hypertension states he takes long-acting insulin the morning does not check his blood sugar. Patient denies fevers, cough or cold-like symptoms. - Related Data Home Medications Medication Instructions Recorded Confirmed Albuterol Inhaler [Ventolin Hfa 2 puff INHALATION RT-Q6H PRN 09/10/21 12/17/21 Inhaler] Aspirin EC [Ecotrin Low Dose] 81 mg PO DAILY 09/10/21 12/17/21 Budesonide/Formoterol Fumarate 2 puff INHALATION RT-BID 09/10/21 12/17/21 [Symbicort 160-4.5 Mcg Inhaler] Fluticasone Nasal [place] [Flonase 1 spray EA NOSTRIL DAILY 09/10/21 12/17/21 Nasal [place]] Omeprazole 20 mg PO DAILY 09/10/21 12/17/21 buPROPion HCL [Wellbutrin XL] 300 mg PO DAILY 09/10/21 12/17/21 lisinopriL [Zestril] 20 mg PO DAILY 09/10/21 12/17/21 Atorvastatin [Lipitor] 80 mg PO DAILY 11/10/21 12/17/21 Cyclobenzaprine [Flexeril] 10 mg PO TID PRN 11/10/21 12/17/21 Dapagliflozin Propanediol [Farxiga] 5 mg PO DAILY 12/17/21 12/17/21 Ibuprofen [Motrin] 800 mg PO Q8HR PRN 12/17/21 12/17/21 Liraglutide [Victoza 3-Sky] 1.8 mg SQ DAILY 12/17/21 12/17/21 Ondansetron [Zofran ODT] 4 mg PO Q12HR PRN 12/17/21 12/17/21 Previous Rx's Medication Instructions Recorded Metoprolol Tartrate [Lopressor] 25 mg PO BID 30 Days #60 tab 11/11/21 Nitroglycerin Sl Tabs [Nitrostat] 0.4 mg SUBLINGUAL Q5M PRN #30 tab 11/11/21 Allergies Allergy/AdvReac Type Severity Reaction Status Date / Time No Known Allergies Allergy Verified 08/16/22 06:51 Review of Systems ROS Statement: Those systems with pertinent positive or pertinent negative responses have been documented in the HPI. ROS Other: All systems not noted in ROS Statement are negative. Past Medical History Past Medical History: COPD, Diabetes Mellitus, Hypertension History of Any Multi-Drug Resistant Organisms: None Reported Past Surgical History: Orthopedic Surgery Past Psychological History: Depression Smoking Status: Former smoker Past Alcohol Use History: None Reported Past Drug Use History: None Reported General Exam Limitations: no limitations General appearance: alert, in no apparent distress Head exam: Present: atraumatic, normocephalic, normal inspection Eye exam: Present: normal appearance, PERRL, EOMI. Absent: scleral icterus, conjunctival injection, periorbital swelling ENT exam: Present: normal exam, normal oropharynx, mucous membranes moist Neck exam: Present: normal inspection, full ROM. Absent: tenderness, meningismus, lymphadenopathy Respiratory exam: Present: normal lung sounds bilaterally. Absent: respiratory distress, wheezes, rales, rhonchi, stridor Cardiovascular Exam: Present: regular rate, normal rhythm, normal heart sounds. Absent: systolic murmur, diastolic murmur, rubs, gallop, clicks GI/Abdominal exam: Present: soft, normal bowel sounds. Absent: distended, tenderness, guarding, rebound, rigid Neurological exam: Present: alert, oriented X3, CN II-XII intact Skin exam: Present: warm, dry, intact, normal color. Absent: rash Course Vital Signs 08/16/22 06:48 Temperature 98.3 F Pulse Rate 79 Respiratory 19 Rate Blood Pressure 146/90 O2 Sat by Pulse 98 Oximetry EKG Findings - EKG Comments: EKG Findings:: EKG was interpreted by me at 7:02 sinus rhythm with a rate of 62 AL 169 QRS 100 QT/QTC 363/368 Medical Decision Making - Medical Decision Making 42-year-old presented for not feeling right, episode dizziness. Patient is asymptomatic. Patient described near-syncope episode. Patient does not check his blood sugar patient may have had some hyperglycemia which is now resolved. Patient is a cement currently was hydrated will be discharged in stable condition return parameters were discussed. Patient stated that he's been having some GI distress issues advised follow-up with PCP regarding colonoscopy. - Lab Data Result diagrams: 08/16/22 07:37 08/16/22 07:37 Lab Results 08/16/22 08/16/22 08/16/22 Range/Units 07:37 07:37 07:37 WBC 8.3 (3.8-10.6) k/uL RBC 5.57 (4.30-5.90) m/uL Hgb 16.6 (13.0-17.5) gm/dL Hct 47.6 (39.0-53.0) % MCV 85.4 (80.0-100.0) fL MCH 29.8 (25.0-35.0) pg MCHC 34.9 (31.0-37.0) g/dL RDW 12.5 (11.5-15.5) % Plt Count 263 (150-450) k/uL MPV 8.6 Neutrophils % 61 % Lymphocytes % 21 % Monocytes % 7 % Eosinophils % 8 % Basophils % 2 % Neutrophils # 5.0 (1.3-7.7) k/uL Lymphocytes # 1.7 (1.0-4.8) k/uL Monocytes # 0.5 (0-1.0) k/uL Eosinophils # 0.6 (0-0.7) k/uL Basophils # 0.2 (0-0.2) k/uL Sodium 138 (137-145) mmol/L Potassium 5.3 H (3.5-5.1) mmol/L Chloride 108 H (98-107) mmol/L Carbon Dioxide 21 L (22-30) mmol/L Anion Gap 9 mmol/L BUN 17 (9-20) mg/dL Creatinine 0.96 (0.66-1.25) mg/dL Est GFR (CKD-EPI)AfAm >90 (>60 ml/min/1.73 sqM) Est GFR (CKD-EPI)NonAf >90 (>60 ml/min/1.73 sqM) Glucose 118 H (74-99) mg/dL Calcium 9.3 (8.4-10.2) mg/dL Magnesium 2.0 (1.6-2.3) mg/dL Total Bilirubin 0.6 (0.2-1.3) mg/dL AST 27 (17-59) U/L ALT 17 (4-49) U/L Alkaline Phosphatase 109 (38-126) U/L Troponin I <0.012 (0.000-0.034) ng/mL Total Protein 7.4 (6.3-8.2) g/dL Albumin 4.7 (3.5-5.0) g/dL Urine Color Urine Appearance (Clear) Urine pH (5.0-8.0) Ur Specific [place] (1.001-1.035) Urine Protein (Negative) Urine Glucose (UA) (Negative) Urine Ketones (Negative) Urine Blood (Negative) Urine Nitrite (Negative) Urine Bilirubin (Negative) Urine Urobilinogen (<2.0) mg/dL Ur Leukocyte Esterase (Negative) 08/16/22 Range/Units 08:23 WBC (3.8-10.6) k/uL RBC (4.30-5.90) m/uL Hgb (13.0-17.5) gm/dL Hct (39.0-53.0) % MCV (80.0-100.0) fL MCH (25.0-35.0) pg MCHC (31.0-37.0) g/dL RDW (11.5-15.5) % Plt Count (150-450) k/uL MPV Neutrophils % % Lymphocytes % % Monocytes % % Eosinophils % % Basophils % % Neutrophils # (1.3-7.7) k/uL Lymphocytes # (1.0-4.8) k/uL Monocytes # (0-1.0) k/uL Eosinophils # (0-0.7) k/uL Basophils # (0-0.2) k/uL Sodium (137-145) mmol/L Potassium (3.5-5.1) mmol/L Chloride (98-107) mmol/L Carbon Dioxide (22-30) mmol/L Anion Gap mmol/L BUN (9-20) mg/dL Creatinine (0.66-1.25) mg/dL Est GFR (CKD-EPI)AfAm (>60 ml/min/1.73 sqM) Est GFR (CKD-EPI)NonAf (>60 ml/min/1.73 sqM) Glucose (74-99) mg/dL Calcium (8.4-10.2) mg/dL Magnesium (1.6-2.3) mg/dL Total Bilirubin (0.2-1.3) mg/dL AST (17-59) U/L ALT (4-49) U/L Alkaline Phosphatase (38-126) U/L Troponin I (0.000-0.034) ng/mL Total Protein (6.3-8.2) g/dL Albumin (3.5-5.0) g/dL Urine Color Light Yellow Urine Appearance Clear (Clear) Urine pH 5.5 (5.0-8.0) Ur Specific [place] 1.010 (1.001-1.035) Urine Protein Negative (Negative) Urine Glucose (UA) 4+ H (Negative) Urine Ketones Negative (Negative) Urine Blood Negative (Negative) Urine Nitrite Negative (Negative) Urine Bilirubin Negative (Negative) Urine Urobilinogen <2.0 (<2.0) mg/dL Ur Leukocyte Esterase Negative (Negative) Disposition Clinical Impression: Near syncope, GI symptoms Disposition: HOME SELF-CARE Condition: Stable Instructions (If sedation given, give patient instructions): Dizziness (ED) Additional Instructions: Please return to the Emergency Department if symptoms worsen or any other concerns. Is patient prescribed a controlled substance at d/c from ED?: No Referrals: Enoch Kern MD [Primary Care Provider] - 1-2 days Time of Disposition: 09:01
[2022-08-16 08:39] LABS: Appearance,Urine Clear (Clear); Bilirubin,Urine Negative (Negative); Blood,Urine Negative (Negative); Color,Urine Light Yellow; Glucose,Urine (UA) 4+ (Negative); Ketones,Urine Negative (Negative); Leukocyte Esterase,Urine Negative (Negative); Nitrite,Urine Negative (Negative); PH, Urine 5.5 (5.0-8.0); Protein,Urine Negative (Negative); Urobilinogen,Urine <2.0 mg/dL (<2.0)
[2022-08-16 09:28] VITALS: BP 116/78; PULSE 69; RESP 16; TEMP 98
== END 2022-08-16 09:27 | disposition home or self-care (01) ==
LOC: EC 06:44
DX: R55 Syncope and collapse (principal); R19.8 Other specified symptoms and signs involving the digestive system and abdomen; J44.9 Chronic obstructive pulmonary disease, unspecified; E11.9 Type 2 diabetes mellitus without complications; I10 Essential (primary) hypertension; F32.A Depression, unspecified; Z87.891 Personal history of nicotine dependence; Z79.51 Long term (current) use of inhaled steroids; Z79.01 Long term (current) use of anticoagulants; Z79.4 Long term (current) use of insulin; Z79.891 Long term (current) use of opiate analgesic
CPT/HCPCS: 36415; 71046; 74018; 80053; 81003; 83735; 84484; 85025; 93005; 96360; 96361; 99284

== ENCOUNTER 2022-08-28 19:56 | Emergency (ER) | payer OTHER ==
[2022-08-28 20:14] VITALS: PULSE 83; RESP 20; TEMP 96.9
--- NOTE | 2022-08-28 21:29 | ED ---
General Adult HPI - General Chief complaint: Recheck/Abnormal Lab/Rx Stated complaint: lower back pain Time Seen by Provider: 08/28/22 20:45 Source: patient Mode of arrival: ambulatory Limitations: no limitations - History of Present Illness Initial comments: This is a 42-year-old male with a past medical history including hypertension, diabetes presents to emergency department with "pain in my rectum after a had a bowel movement." He says that he has had multiple episodes of diarrhea earlier today and he had a large bowel movement approximately one hour prior to arrival that started the pain in the upper portion of his gluteal cleft. The patient denied any trauma to this area and denied any pain prior to the bowel movement. The patient stated that he wanted to make sure pain with sitting. The patient did state that every time he has a bowel movement since he has pain in the upper gluteal cleft without any radiation. The patient denied any fevers, chills as well as any nausea and vomiting. The patient stated that he did not have any pain around the rectum and noted that he denies any dark stools or blood in his stool. - Related Data Home Medications Medication Instructions Recorded Confirmed Albuterol Inhaler [Ventolin Hfa 2 puff INHALATION RT-Q6H PRN 09/10/21 12/17/21 Inhaler] Aspirin EC [Ecotrin Low Dose] 81 mg PO DAILY 09/10/21 12/17/21 Budesonide/Formoterol Fumarate 2 puff INHALATION RT-BID 09/10/21 12/17/21 [Symbicort 160-4.5 Mcg Inhaler] Fluticasone Nasal [place] [Flonase 1 spray EA NOSTRIL DAILY 09/10/21 12/17/21 Nasal [place]] Omeprazole 20 mg PO DAILY 09/10/21 12/17/21 buPROPion HCL [Wellbutrin XL] 300 mg PO DAILY 09/10/21 12/17/21 lisinopriL [Zestril] 20 mg PO DAILY 09/10/21 12/17/21 Atorvastatin [Lipitor] 80 mg PO DAILY 11/10/21 12/17/21 Cyclobenzaprine [Flexeril] 10 mg PO TID PRN 11/10/21 12/17/21 Dapagliflozin Propanediol [Farxiga] 5 mg PO DAILY 12/17/21 12/17/21 Ibuprofen [Motrin] 800 mg PO Q8HR PRN 12/17/21 12/17/21 Liraglutide [Victoza 3-Sky] 1.8 mg SQ DAILY 12/17/21 12/17/21 Ondansetron [Zofran ODT] 4 mg PO Q12HR PRN 12/17/21 12/17/21 Previous Rx's Medication Instructions Recorded Metoprolol Tartrate [Lopressor] 25 mg PO BID 30 Days #60 tab 11/11/21 Nitroglycerin Sl Tabs [Nitrostat] 0.4 mg SUBLINGUAL Q5M PRN #30 tab 11/11/21 Allergies Allergy/AdvReac Type Severity Reaction Status Date / Time No Known Allergies Allergy Verified 08/28/22 20:14 Review of Systems ROS Statement: Those systems with pertinent positive or pertinent negative responses have been documented in the HPI. ROS Other: All systems not noted in ROS Statement are negative. Past Medical History Past Medical History: COPD, Diabetes Mellitus, Hypertension History of Any Multi-Drug Resistant Organisms: None Reported Past Surgical History: Orthopedic Surgery Past Psychological History: Depression Smoking Status: Former smoker Past Alcohol Use History: None Reported Past Drug Use History: None Reported General Exam Limitations: no limitations General appearance: alert, in no apparent distress Head exam: Present: atraumatic, normocephalic Eye exam: Present: normal appearance, PERRL Pupils: Present: normal accommodation ENT exam: Present: normal exam, normal oropharynx, mucous membranes moist Neck exam: Present: normal inspection, full ROM Respiratory exam: Present: normal lung sounds bilaterally Cardiovascular Exam: Present: regular rate, normal rhythm, normal heart sounds GI/Abdominal exam: Present: soft, normal bowel sounds Rectal exam: Present: normal inspection, normal rectal tone, other (There is minor left where the patient had pain originally) Extremities exam: Present: normal inspection, full ROM Back exam: Present: normal inspection, full ROM Neurological exam: Present: alert, oriented X3, CN II-XII intact Psychiatric exam: Present: normal affect, normal mood Skin exam: Present: warm, dry Course Vital Signs 08/28/22 08/28/22 20:12 21:36 Temperature 96.9 F L 96.9 F L Pulse Rate 83 83 Respiratory 20 20 Rate Blood Pressure 137/86 132/80 O2 Sat by Pulse 96 96 Oximetry Medical Decision Making - Medical Decision Making The patient was seen and evaluated in the emergency department. Physical exam, the patient was resting in bed without any acute distress. Vital signs admission were stable and within normal limits. Evaluation of the rectum in the rectal area only showed some minor skin irritation to the gluteal cleft and denied of any other signs of infection, induration or erythema. The rectal exam was within normal limits and the patient likely had some skin irritation as a cause of his pain. The patient was told to use aromatic cream order to alleviate and help with the symptoms. He was also advised to report to his primary care physician for further workup and evaluation. The patient was also advised reports to emergency department if he noted any swelling, pain as well as any fevers and chills. The patient was agreeable to this and all his questions were answered. The patient was discharged home in stable condition. Disposition Clinical Impression: Rectal pain, Skin tear Disposition: HOME SELF-CARE Condition: Stable Instructions (If sedation given, give patient instructions): Skin Tear (ED) Is patient prescribed a controlled substance at d/c from ED?: No Referrals: Enoch Kern MD [Primary Care Provider] - 1-2 days Time of Disposition: 21:15
[2022-08-28 21:37] VITALS: BP 132/80
== END 2022-08-28 21:37 | disposition home or self-care (01) ==
LOC: EC 19:56
DX: S61.419A Laceration without foreign body of unspecified hand, initial encounter (principal); I10 Essential (primary) hypertension; K62.89 Other specified diseases of anus and rectum; J44.9 Chronic obstructive pulmonary disease, unspecified; E11.9 Type 2 diabetes mellitus without complications; F32.A Depression, unspecified; Z87.891 Personal history of nicotine dependence; Z79.899 Other long term (current) drug therapy; Z79.811 Long term (current) use of aromatase inhibitors; Z79.51 Long term (current) use of inhaled steroids; Z79.82 Long term (current) use of aspirin; X58.XXXA Exposure to other specified factors, initial encounter
CPT/HCPCS: 99283

== ENCOUNTER 2022-09-15 09:57 | Day surgery (SDC) | payer OTHER ==
[2022-09-14 10:13] VITALS: BMI 35.6
[~2022-09-15 09:57] MED LIST changes: -ALPRAZolam 0.25 MG TAB PO PRN; -ALPRAZolam 0.5 MG TAB PO PRN; -ASPIRIN 325 MG TAB PO STA; -HEPARIN SODIUM,PORCINE 10,000 UNIT in SODIUM CHLORIDE 0.9% 1,000 ML IRRIGATION PRN; -HEPARIN SODIUM,PORCINE 2,500 UNIT in SODIUM CHLORIDE 0.9% 250 ML IRRIGATION PRN; +LACTATED RINGERS 1,000 ML IV SCH; -NITROGLYCERIN SL TABS 0.4 MG TAB SUBLINGUAL PRN; -SODIUM CHLORIDE 0.9% 1,000 ML in EMPTY BAG 1 BAG IV SCH
[2022-09-15 11:20] VITALS: RESP 16; TEMP 96.5
[2022-09-15 11:25] LABS: Glucose,Whole Blood 107 mg/dL (70-110)
[2022-09-15] MEDS ORDERED: PROPOFOL 10 MG/ML 20 ML VIAL IV ONE (11:42)
--- NOTE | 2022-09-15 11:52 | P.GSHP ---
History of Present Illness H&P Date: 09/15/22 Chief Complaint: Epigastric pain This is a 42-year-old male said complete epigastric pain. Patient presents today for EGD evaluate for gastritis. Past Medical History Past Medical History: COPD, Diabetes Mellitus, Hyperlipidemia, Hypertension Additional Past Medical History / Comment(s): ABD PAIN History of Any Multi-Drug Resistant Organisms: None Reported Past Surgical History: Orthopedic Surgery Additional Past Surgical History / Comment(s): LT KNEE SX Past Anesthesia/Blood Transfusion Reactions: No Reported Reaction Smoking Status: Former smoker - Past Family History Mother Family Medical History: Cancer Medications and Allergies Home Medications Medication Instructions Recorded Confirmed Type Albuterol Inhaler [Ventolin Hfa 2 puff INHALATION RT-Q6H PRN 09/10/21 09/14/22 History Inhaler] Aspirin EC [Ecotrin Low Dose] 81 mg PO DAILY 09/10/21 09/14/22 History Budesonide/Formoterol Fumarate 2 puff INHALATION RT-BID 09/10/21 09/14/22 History [Symbicort 160-4.5 Mcg Inhaler] Fluticasone Nasal [place] [Flonase 1 spray EA NOSTRIL DAILY 09/10/21 09/14/22 History Nasal [place]] Omeprazole 20 mg PO DAILY 09/10/21 09/14/22 History buPROPion HCL [Wellbutrin XL] 300 mg PO DAILY 09/10/21 09/14/22 History lisinopriL [Zestril] 20 mg PO DAILY 09/10/21 09/14/22 History Atorvastatin [Lipitor] 80 mg PO DAILY 11/10/21 09/14/22 History Cyclobenzaprine [Flexeril] 10 mg PO TID PRN 11/10/21 09/14/22 History Metoprolol Tartrate [Lopressor] 25 mg PO BID 30 Days #60 tab 11/11/21 09/14/22 Rx Nitroglycerin Sl Tabs [Nitrostat] 0.4 mg SUBLINGUAL Q5M PRN #30 tab 11/11/21 09/14/22 Rx Dapagliflozin Propanediol [Farxiga] 5 mg PO DAILY 12/17/21 09/14/22 History Ibuprofen [Motrin] 800 mg PO Q8HR PRN 12/17/21 09/14/22 History Liraglutide [Victoza 3-Sky] 1.8 mg SQ DAILY 12/17/21 09/14/22 History Ondansetron [Zofran ODT] 4 mg PO Q12HR PRN 12/17/21 09/14/22 History Allergies Allergy/AdvReac Type Severity Reaction Status Date / Time No Known Allergies Allergy Verified 09/14/22 10:06 Surgical - Exam Vital Signs Temp Pulse Resp BP Pulse Ox 96.5 F L 83 16 115/72 95 09/15/22 11:15 09/15/22 11:15 09/15/22 11:15 09/15/22 11:15 09/15/22 11:15 - General well developed, well nourished, no distress - Eyes PERRL - ENT normal pinna - Neck no masses - Respiratory normal expansion - Cardiovascular Rhythm: regular - Abdomen Abdomen: soft, non tender Assessment and Plan Assessment: Epigastric pain. We'll perform EGD tonight for gastritis.
--- NOTE | 2022-09-15 11:55 | P.OP ---
Date of Procedure: 09/15/22 Preoperative Diagnosis: Epigastric pain Postoperative Diagnosis: Antral gastritis Mild esophagitis Procedure(s) Performed: EGD Anesthesia: MAC Surgeon: Merrill Paiz Pathology: other (Antrum, esophagus) Condition: stable Disposition: PACU Description of Procedure: The patient was placed on the endoscopy table in the lateral position. He received IV sedation. The gastroscope placed oropharynx passed in the esophagus into the stomach. Scope placement pylorus. The first and second portion of the duodenum appeared normal. Scope was then brought back the antrum and this appeared mildly inflamed. A biopsies was performed. The scope was then retroflexed and remainder the stomach appeared normal. There was a small sliding hiatal hernia. The GE junction was at 39 cm. The distal esophagus was minimal inflamed. A biopsies performed. The proximal esophagus appeared normal. Scope was withdrawn for patient.
[2022-09-15 12:12] VITALS: PULSE 78
[2022-09-15 12:18] VITALS: BP 101/64
[2022-09-15 12:29] LABS: Glucose,Whole Blood 84 mg/dL (70-110)
== END 2022-09-15 12:30 | disposition home or self-care (01) ==
LOC: ORWHC2ENDO 09:57
PROVIDERS: ATTEND Surgery
DX: K29.50 Unspecified chronic gastritis without bleeding (principal); K20.90 Esophagitis, unspecified without bleeding; K44.9 Diaphragmatic hernia without obstruction or gangrene; J44.9 Chronic obstructive pulmonary disease, unspecified; E11.9 Type 2 diabetes mellitus without complications; E78.5 Hyperlipidemia, unspecified; I10 Essential (primary) hypertension; Z87.891 Personal history of nicotine dependence; Z79.1 Long term (current) use of non-steroidal anti-inflammatories (NSAID); Z79.51 Long term (current) use of inhaled steroids; Z79.82 Long term (current) use of aspirin; Z79.84 Long term (current) use of oral hypoglycemic drugs; Z79.899 Other long term (current) drug therapy
CPT/HCPCS: 88305; 43239; J2704

== ENCOUNTER 2022-10-17 07:59 | Day surgery (SDC) | payer OTHER ==
[~2022-10-17 07:59] MED LIST changes: +ACETAMINOPHEN TAB 500 MG TAB PO PRN; +DEXAMETHASONE SOD PHOSPHATE 4 MG/ML 1 ML VIAL IV ONE; +HEPARIN SODIUM,PORCINE/PF 5,000 UNIT/0.5 ML SYRINGE SQ PRN; +HYDROmorphone 0.5 MG/0.5 ML SYRINGE IVP PRN; -LACTATED RINGERS 1,000 ML IV SCH; +MIDAZOLAM 2 MG/2 ML VIAL IV PRN; +ONDANSETRON 4 MG/2 ML VIAL IVP ONE; +SCOPOLAMINE 1 MG/72 HR PATCH TRANSDERM ONE; +ceFAZolin 3 GM in SODIUM CHLORIDE 0.9% 100 ML IVPB PRN
[2022-10-17] MEDS: LACTATED RINGERS 1,000 ML IV SCH (08:21)
[2022-10-17 08:42] LABS: Glucose,Whole Blood 134 mg/dL (70-110)
[2022-10-17] MEDS ORDERED: fentaNYL (PF) 50 MCG/ML 2 ML AMP ONE (09:57)
[2022-10-17] MEDS ORDERED: MIDAZOLAM 2 MG/2 ML VIAL ONE (09:57)
[2022-10-17] MEDS ORDERED: PROPOFOL 10 MG/ML 20 ML VIAL IV ONE (09:57)
[2022-10-17] MEDS ORDERED: PHENYLEPHRINE-0.9% NACL SYG 1,000 MCG/10 ML SYRINGE ONE (09:57)
[2022-10-17] MEDS ORDERED: ROCURONIUM 10 MG/ML (5 ML VIAL) IV ONE (09:57)
[2022-10-17] MEDS ORDERED: KETAMINE 10 MG/ML 20 ML VIAL ONE (09:57)
[2022-10-17] MEDS ORDERED: GLYCOPYRROLATE 0.2 MG/ML 2 ML VIAL ONE (09:57)
[2022-10-17] MEDS ORDERED: LIDOCAINE 2% INJ 20 MG/ML (2 ML VIAL) ONE (09:57)
[2022-10-17] MEDS ORDERED: SUCCINYLCHOLINE CHLORIDE 200 MG/10 ML VIAL IV ONE (09:57)
[2022-10-17] MEDS ORDERED: NEOSTIGMINE 1 MG/ML 10 ML VIAL ONE (09:57)
[2022-10-17] MEDS ORDERED: BUPIVACAIN-EPI 0.25%-1:200,000 30 ML VIAL SQ ONE (10:42)
[2022-10-17] MEDS ORDERED: HYDROmorphone 1 MG/ML 1 ML SYRINGE IVP PRN (11:09)
[2022-10-17] MEDS ORDERED: ONDANSETRON 4 MG/2 ML VIAL IVP PRN (11:09)
--- NOTE | 2022-10-17 11:10 | P.OP ---
Date of Procedure: 10/17/22 Preoperative Diagnosis: GERD Postoperative Diagnosis: GERD Procedure(s) Performed: Laparoscopic Nancy fundoplication Anesthesia: [place] Surgeon: Merrill Paiz Estimated Blood Loss (ml): 5 Pathology: none sent Condition: stable Disposition: PACU Description of Procedure: HThe patient was placed on the operating table in the supine position. The patient received general anesthesia. And was placed in dorsal lithotomy position. The patient was prepped and draped in the usual sterile fashion. The skin incision sites were anesthetized with 1% local Xylocaine. The skin was incised in the left periumbilical area and then using a blade less 5 mm trocar under direct visualization panel cavity was entered. After adequate insufflation the laparoscope was then placed into the peritoneal cavity. Next a 5 mm trochars placed in the right epigastric position. Another 5 millimeter trocar the right lateral position. Another 5 millimeter trocar in the left lateral position a 5 mm trocar is placed in the left epigastric position. And then the initial 5 mm trocar was exchanged for a 10 mm trocar. The left lateral lobe liver was retracted. The hernia was seen. The crural defect was then dissected using the Harmonic scissors device. A 360 crural dissection was performed the esophagus stomach was reduced back into the peritoneal Cavity. The crural defect was then closed using 2-0 Ethibond suture. Next the fundus of the stomach was mobilized using the [place] scissors device. and then a 58- [place] bougie dilator was placed oropharynx passed into the esophagus and stomach the fundal plication wrap was then performed by grasping the fundus posteriorly and bringing it around the esophagus and stomach fundoplication was then performed using 2-0 Ethibond suture. Care was taken that the fundal location rested over top of the intra-abdominal esophagus. There was no injury seen to the stomach or esophagus. The dilator was then withdrawn. The abdomen was irrigated there is no bleeding seen. The trochars were then withdrawn and then skin incision sites were closed using 3-0 Monocryl suture Steri-Strips are applied. Patient thought procedure well and sent to recovery room in stable condition.
[2022-10-17 11:27] LABS: Glucose,Whole Blood 172 mg/dL (70-110)
[2022-10-17] MEDS ORDERED: SODIUM CHLORIDE 0.9% 1,000 ML IV ONE ×2 (11:42)
[2022-10-17] MEDS: D5-0.45% NACL WITH KCL 20MEQ/L 1,000 ML IV SCH ×2 (13:35→21:13)
[2022-10-17 14:58] VITALS: BMI 36.0
[2022-10-17 16:48] LABS: Glucose,Whole Blood 141 mg/dL (70-110)
[2022-10-17 20:15] LABS: Glucose,Whole Blood 171 mg/dL (70-110)
[2022-10-18 05:56] LABS: Glucose,Whole Blood 158 mg/dL (70-110)
[2022-10-18] MEDS: D5-0.45% NACL WITH KCL 20MEQ/L 1,000 ML IV SCH (06:00)
[2022-10-18 07:32] VITALS: BP 132/85; PULSE 70; RESP 16; TEMP 97.5
[2022-10-18] MEDS ORDERED: ENOXAPARIN 40 MG/0.4 ML SYRINGE SQ SCH (09:00)
[2022-10-18] MEDS ORDERED: NITROGLYCERIN SL TABS 0.4 MG TAB SUBLINGUAL PRN (11:10)
[2022-10-18] MEDS ORDERED: CYCLOBENZAPRINE 10 MG TAB PO PRN (11:10)
[2022-10-18] MEDS ORDERED: METOPROLOL TARTRATE 25 MG TAB PO SCH (11:15)
[2022-10-18] MEDS ORDERED: PANTOPRAZOLE 40 MG TABLET PO SCH (11:15)
[2022-10-18] MEDS ORDERED: buPROPion XL 300 MG TAB.ER.24H PO SCH (11:15)
[2022-10-18] MEDS ORDERED: SYMBICORT 160-4.5 MCG INHALER INHALATION SCH (11:15)
[2022-10-18] MEDS ORDERED: lisinopriL 20 MG TAB PO SCH (11:15)
[2022-10-18] MEDS ORDERED: ATORVASTATIN 80 MG TAB PO SCH (11:15)
[2022-10-18 11:28] LABS: Glucose,Whole Blood 160 mg/dL (70-110)
[2022-10-18] MEDS ORDERED: HYDROcodone/APAP 5-325MG 1 EACH TAB PO PRN (11:35)
[2022-10-18] MEDS: LACTATED RINGERS 1,000 ML IV SCH (11:41)
--- NOTE | 2022-10-18 11:45 | P.DS ---
Providers Expected date of discharge: 10/18/22 Attending physician: Merrill Paiz Consults: 10/17/22 12:49 Consult Physician Routine Consulting Provider: Raymundo Hargrove Consult Reason/Comments: medical management Do you want consulting provider notified?: Yes Primary care physician: Enoch Kern Hospital Course: Discharge diagnosis 1. GERD status post laparoscopic Nancy fundoplication Hospital course This is a 42-year-old male with a known history of GERD. He is status post laparoscopic Nancy fundoplication. He tolerated surgery well. He's tolerated diet. He has been up and ambulating. His pain is controlled. He is afebrile. He is stable for discharge. Please refer to chart for any further details. Physician Blocker Automatic note has been reviewed by physician. Signing provider agrees with the documented findings, assessment, and plan of care. Patient Condition at Discharge: Stable Plan - Discharge Summary Discharge Rx Participant: No New Discharge Prescriptions: New HYDROcodone/APAP 5-325MG [[place] 5-325] 1 tab PO Q6HR PRN 3 Days #12 tab PRN Reason: Pain Continue lisinopriL [Zestril] 20 mg PO DAILY Omeprazole 20 mg PO DAILY Albuterol Inhaler [Ventolin Hfa Inhaler] 2 puff INHALATION Q6H PRN PRN Reason: Shortness Of Breath Atorvastatin [Lipitor] 80 mg PO DAILY Metoprolol Tartrate [Lopressor] 25 mg PO BID 30 Days #60 tab Nitroglycerin Sl Tabs [Nitrostat] 0.4 mg SUBLINGUAL Q5M PRN #30 tab PRN Reason: Chest Pain Dapagliflozin Propanediol [Farxiga] 5 mg PO DAILY Liraglutide [Victoza 3-Sky] 1.8 mg SQ DAILY Budesonide/Formoterol Fumarate [Symbicort 160-4.5 Mcg Inhaler] 2 puff INHALATION BID Aspirin EC [Ecotrin Low Dose] 81 mg PO DAILY buPROPion HCL [Wellbutrin XL] 300 mg PO DAILY Fluticasone Nasal [place] [Flonase Nasal [place]] 1 spray EA NOSTRIL DAILY Cyclobenzaprine [Flexeril] 10 mg PO TID PRN PRN Reason: Muscle Spasm Ondansetron [Zofran ODT] 4 mg PO Q12HR PRN PRN Reason: Nausea No Action Ibuprofen [Motrin] 800 mg PO Q8HR PRN PRN Reason: Pain Discharge Medication List Albuterol Inhaler [Ventolin Hfa Inhaler] 2 puff INHALATION Q6H PRN 09/10/21 [History] Aspirin EC [Ecotrin Low Dose] 81 mg PO DAILY 09/10/21 [History] Budesonide/Formoterol Fumarate [Symbicort 160-4.5 Mcg Inhaler] 2 puff INHALATION BID 09/10/21 [History] Fluticasone Nasal [place] [Flonase Nasal [place]] 1 spray EA NOSTRIL DAILY 09/10/21 [History] Omeprazole 20 mg PO DAILY 09/10/21 [History] buPROPion HCL [Wellbutrin XL] 300 mg PO DAILY 09/10/21 [History] lisinopriL [Zestril] 20 mg PO DAILY 09/10/21 [History] Atorvastatin [Lipitor] 80 mg PO DAILY 11/10/21 [History] Cyclobenzaprine [Flexeril] 10 mg PO TID PRN 11/10/21 [History] Metoprolol Tartrate [Lopressor] 25 mg PO BID 30 Days #60 tab 11/11/21 [Rx] Nitroglycerin Sl Tabs [Nitrostat] 0.4 mg SUBLINGUAL Q5M PRN #30 tab 11/11/21 [Rx] Dapagliflozin Propanediol [Farxiga] 5 mg PO DAILY 12/17/21 [History] Ibuprofen [Motrin] 800 mg PO Q8HR PRN 12/17/21 [History] Liraglutide [Victoza 3-Sky] 1.8 mg SQ DAILY 12/17/21 [History] Ondansetron [Zofran ODT] 4 mg PO Q12HR PRN 12/17/21 [History] HYDROcodone/APAP 5-325MG [[place] 5-325] 1 tab PO Q6HR PRN 3 Days #12 tab 10/18/22 [Rx] Follow up Appointment(s)/Referral(s): Merrill Paiz MD [STAFF PHYSICIAN] - 1 Week Activity/Diet/Wound Care/Special Instructions: No driving while taking [place] No lifting over 10 pounds Shower daily. No soaking or tub baths for 2 weeks Very light activity until you are reevaluated at your follow up appointment with your surgeon Continue full liquid diet until seen by surgeon Hold on taking Motrin until seen by surgeon Discharge Disposition: HOME SELF-CARE
--- NOTE | 2022-10-18 16:55 | P.CONS ---
History of Present Illness - Reason for Consult Consult date: 10/18/22 Medical management Requesting physician: Merrill Paiz - Chief Complaint Abdominal surgery - History of Present Illness This is a pleasant 42-year-old patient of Dr. Kern.. Chronic medical conditions include spasms, diabetes, hypertension, hyperlipidemia, depression. Patient yesterday underwent Nancy fundoplication Dr. Paiz. This morning no pain. No nausea vomiting. On clear liquid diet. Up to the bathroom. No chest pain no shortness of breath. Review of systems: GEN.: None EYES: None HEENT: None NECK: None RESPIRATORY: None CARDIOVASCULAR: As above GASTROINTESTINAL: Slight abdominal discomfort GENITOURINARY: None MUSCULOSKELETAL: [Does get muscle spasms LYMPHATICS: None HEMATOLOGICAL: None PSYCHIATRY: None NEUROLOGICAL: None Past medical history to include: COPD, diabetes, hypertension, depression, muscle spasms Social history: Patient works at a [employer]. Lives with his Smoked a pack a day for 27 years stopped 2020. No alcohol. Family history: Reviewed, noncontributory to presentation Physical examination: VITAL SIGNS: 97.5, 70, 16, 132/85, 97% on 2 L GENERAL: BMI 36.1, declining in bed comfortable EYES: Pupils equal. Conjunctiva normal. HEENT: External appearance of nose and ears normal, oral cavity grossly normal. NECK: JVD not raised; masses not palpable. HEART: First and second heart sounds are normal; no edema. LUNGS: Respiratory rate normal; decreased breath sounds. ABDOMEN: Soft, minimally tender, soft, liver spleen not palpable, no masses palpable. PSYCH: Alert and oriented x3; mood and affect normal. MUSCULOSKELETAL:No Clubbing/cyanosis;muscles-grossly intact NEUROLOGICAL: Cranial nerves grossly intact; no facial asymmetry, power and sensation grossly intact. LYMPHATICS: No lymph nodes palpable in the axilla and neck INVESTIGATIONS, reviewed in the clinical context: Accu-Cheks noted Assessment and plan: -Laparoscopic Nancy fundoplication, by Dr. Izabel ley. -Obesity BMI 36.1 Weight loss measures -Hyperlipidemia Lipitor -Diabetes mellitus type 2 Continue home medications. Follow Accu-Cheks. Discussed recheck his Accu-Cheks daily and follow with his PCP. -GERD Omeprazole 20 mg daily -COPD in a previous smoker Symbicort 1654.52 puffs twice a day. Ventolin ER and -Depression otherwise specified Wellbutrin XL 300 mg a day -Essential hypertension Zestril 20 mg daily Home medications resumed. Follow Accu-Cheks. Increase activity. Follow-up with his PCP upon discharge. Questions answered. Discussed with patient and . Thank you Dr. Paiz Past Medical History Past Medical History: Chest Pain / Angina, COPD, Diabetes Mellitus, GERD/Reflux, Hyperlipidemia, Hypertension, Osteoarthritis (OA) Additional Past Medical History / Comment(s): hiatal hernia, History of Any Multi-Drug Resistant Organisms: None Reported Past Surgical History: Orthopedic Surgery Additional Past Surgical History / Comment(s): Left knee surgery, EGD, Nancy (10/17/22) Past Anesthesia/Blood Transfusion Reactions: No Reported Reaction Past Psychological History: Depression Smoking Status: Former smoker Past Alcohol Use History: None Reported Additional Past Alcohol Use History / Comment(s): Quit smoking in 2019. Past Drug Use History: None Reported - Past Family History Mother Family Medical History: Cancer Medications and Allergies Home Medications Medication Instructions Recorded Confirmed Type Albuterol Inhaler [Ventolin Hfa 2 puff INHALATION Q6H PRN 09/10/21 10/17/22 History Inhaler] Aspirin EC [Ecotrin Low Dose] 81 mg PO DAILY 09/10/21 10/17/22 History Budesonide/Formoterol Fumarate 2 puff INHALATION BID 09/10/21 10/17/22 History [Symbicort 160-4.5 Mcg Inhaler] Fluticasone Nasal [place] [Flonase 1 spray EA NOSTRIL DAILY 09/10/21 10/17/22 History Nasal [place]] Omeprazole 20 mg PO DAILY 09/10/21 10/17/22 History buPROPion HCL [Wellbutrin XL] 300 mg PO DAILY 09/10/21 10/17/22 History lisinopriL [Zestril] 20 mg PO DAILY 09/10/21 10/17/22 History Atorvastatin [Lipitor] 80 mg PO DAILY 11/10/21 10/17/22 History Cyclobenzaprine [Flexeril] 10 mg PO TID PRN 11/10/21 10/17/22 History Metoprolol Tartrate [Lopressor] 25 mg PO BID 30 Days #60 tab 11/11/21 10/17/22 Rx Nitroglycerin Sl Tabs [Nitrostat] 0.4 mg SUBLINGUAL Q5M PRN #30 tab 11/11/21 10/17/22 Rx Dapagliflozin Propanediol [Farxiga] 5 mg PO DAILY 12/17/21 10/17/22 History Ibuprofen [Motrin] 800 mg PO Q8HR PRN 12/17/21 10/17/22 History Liraglutide [Victoza 3-Sky] 1.8 mg SQ DAILY 12/17/21 10/17/22 History Ondansetron [Zofran ODT] 4 mg PO Q12HR PRN 12/17/21 10/17/22 History HYDROcodone/APAP 5-325MG [[place] 1 tab PO Q6HR PRN 3 Days #12 tab 10/18/22 Rx 5-325] Allergies Allergy/AdvReac Type Severity Reaction Status Date / Time No Known Allergies Allergy Verified 10/17/22 08:33 Physical Exam Vitals: Vital Signs Temp Pulse Resp BP Pulse Ox 10/18/22 07:32 97.5 F L 70 16 132/85 97 10/18/22 02:01 98.4 F 79 18 123/76 97 10/17/22 19:29 97.7 F 102 H 18 136/77 97 10/17/22 12:57 91 115/73 97 10/17/22 12:42 91 120/78 97 10/17/22 12:27 82 132/82 96 10/17/22 12:12 89 125/82 95 10/17/22 11:57 98.0 F 70 16 135/78 94 L 10/17/22 11:50 72 16 111/53 95 10/17/22 11:35 70 16 108/58 95 10/17/22 11:20 71 16 118/57 93 L 10/17/22 11:05 97 F L 86 16 118/73 95 Intake and Output 10/17/22 10/18/22 10/18/22 22:59 06:59 14:59 Intake Total 320 320 Balance 320 320 Intake: Oral 320 320 Other: Voiding Method Toilet Toilet Urinal Urinal # Voids 1 Results Labs: Abnormal Lab Results - Last 24 Hours (Table) 10/17/22 10/17/22 10/17/22 Range/Units 11:25 16:30 20:13 POC Glucose (mg/dL) 172 H 141 H 171 H (70-110) mg/dL 10/18/22 Range/Units 05:54 POC Glucose (mg/dL) 158 H (70-110) mg/dL
== END 2022-10-18 13:02 | disposition home or self-care (01) ==
LOC: OR 07:59 → 4SSUR 10:58 → OR 10-18 13:02
PROVIDERS: ATTEND Surgery
DX: K21.00 Gastro-esophageal reflux disease with esophagitis, without bleeding (principal); K44.9 Diaphragmatic hernia without obstruction or gangrene; I10 Essential (primary) hypertension; M19.90 Unspecified osteoarthritis, unspecified site; E11.9 Type 2 diabetes mellitus without complications; E66.9 Obesity, unspecified; E78.5 Hyperlipidemia, unspecified; F32.A Depression, unspecified; J44.9 Chronic obstructive pulmonary disease, unspecified; Z68.36 Body mass index [BMI] 36.0-36.9, adult; Z79.1 Long term (current) use of non-steroidal anti-inflammatories (NSAID); Z79.51 Long term (current) use of inhaled steroids; Z79.82 Long term (current) use of aspirin; Z79.84 Long term (current) use of oral hypoglycemic drugs; Z79.899 Other long term (current) drug therapy; Z87.891 Personal history of nicotine dependence
CPT/HCPCS: 43281; J1100; J0690; J2405; J1650; J1170 ×2; J1644

== ENCOUNTER 2024-08-29 14:45 | Emergency (ER) | payer OTHER ==
[2024-08-29 15:00] VITALS: BP 117/79; PULSE 68; RESP 16; TEMP 97.7
--- NOTE | 2024-08-29 15:09 | ED ---
Chest Pain HPI - General Source: patient, RN notes reviewed Mode of arrival: ambulatory Limitations: no limitations <Jessica Abreu - Last Filed: 08/29/24 15:08> - General Source: patient, RN notes reviewed, old records reviewed Mode of arrival: ambulatory Limitations: no limitations - History of Present Illness MD Complaint: chest pain Pain Location: left chest Severity: mild Severity scale (1-10): 2 Quality: aching Consistency: intermittent Improves With: nothing Worsens With: nothing Anginal Symptoms: other (0) Other Symptoms: other (0) Treatments Prior to Arrival: none <Simon Pate - Last Filed: 09/06/24 13:52> - General Chief Complaint: Chest Pain Stated Complaint: chest pain Time Seen by Provider: 08/29/24 15:01 - History of Present Illness Initial Comments: [id number] male with a history of diabetes and high cholesterol presented to the emergency room chief complaint of left lower intermittent chest pain that is a squeezing sensation that has been going on over the past week. Patient denies associated diaphoresis, nausea or vomiting. (Jessica Abreu) This is a 44 male to ER for chest pain left lower quadrant abdominal pain chest pain feels tight and squeezing. (Simon Pate) - Related Data Home Medications Medication Instructions Recorded Confirmed Albuterol Inhaler [Ventolin Hfa 2 puff INHALATION Q6H PRN 09/10/21 10/17/22 Inhaler] Aspirin EC [Ecotrin Low Dose] 81 mg PO DAILY 09/10/21 10/17/22 Budesonide/Formoterol Fumarate 2 puff INHALATION BID 09/10/21 10/17/22 [Symbicort 160-4.5 Mcg Inhaler] Fluticasone Nasal [place] [Flonase 1 spray EA NOSTRIL DAILY 09/10/21 10/17/22 Nasal [place]] Omeprazole 20 mg PO DAILY 09/10/21 10/17/22 buPROPion HCL [Wellbutrin XL] 300 mg PO DAILY 09/10/21 10/17/22 lisinopriL [Zestril] 20 mg PO DAILY 09/10/21 10/17/22 Atorvastatin [Lipitor] 80 mg PO DAILY 11/10/21 10/17/22 Cyclobenzaprine [Flexeril] 10 mg PO TID PRN 11/10/21 10/17/22 Dapagliflozin Propanediol [Farxiga] 5 mg PO DAILY 12/17/21 10/17/22 Ibuprofen [Motrin] 800 mg PO Q8HR PRN 12/17/21 10/17/22 Liraglutide [Victoza 3-Sky] 1.8 mg SQ DAILY 12/17/21 10/17/22 Ondansetron [Zofran ODT] 4 mg PO Q12HR PRN 12/17/21 10/17/22 Previous Rx's Medication Instructions Recorded Metoprolol Tartrate [Lopressor] 25 mg PO BID 30 Days #60 tab 11/11/21 Nitroglycerin Sl Tabs [Nitrostat] 0.4 mg SUBLINGUAL Q5M PRN #30 tab 11/11/21 HYDROcodone/APAP 5-325MG [[place] 1 tab PO Q6HR PRN 3 Days #12 tab 10/18/22 5-325] Allergies Allergy/AdvReac Type Severity Reaction Status Date / Time No Known Allergies Allergy Verified 10/17/22 08:33 Review of Systems ROS Other: All systems not noted in ROS Statement are negative. <Jessica Abreu - Last Filed: 08/29/24 15:08> ROS Other: All systems not noted in ROS Statement are negative. <Simon Pate - Last Filed: 09/06/24 13:52> ROS Statement: Those systems with pertinent positive or pertinent negative responses have been documented in the HPI. Past Medical History Past Medical History: Chest Pain / Angina, COPD, Diabetes Mellitus, GERD/Reflux, Hyperlipidemia, Hypertension, Osteoarthritis (OA) Additional Past Medical History / Comment(s): hiatal hernia, History of Any Multi-Drug Resistant Organisms: None Reported Past Surgical History: Orthopedic Surgery Additional Past Surgical History / Comment(s): Left knee surgery, EGD, Nancy (10/17/22) Past Anesthesia/Blood Transfusion Reactions: No Reported Reaction Past Psychological History: Depression Smoking Status: Former smoker Past Alcohol Use History: None Reported Past Drug Use History: None Reported - Past Family History Mother Family Medical History: Cancer <Jessica Abreu - Last Filed: 08/29/24 15:08> General Exam Limitations: no limitations <Jessica Abreu - Last Filed: 08/29/24 15:08> General appearance: anxious Head exam: Present: atraumatic, normocephalic, normal inspection Eye exam: Present: normal appearance, PERRL, EOMI. Absent: scleral icterus, conjunctival injection, periorbital swelling ENT exam: Present: normal exam, mucous membranes moist Neck exam: Present: normal inspection. Absent: tenderness, meningismus, lymphadenopathy Respiratory exam: Present: normal lung sounds bilaterally. Absent: respiratory distress, wheezes, rales, rhonchi, stridor Cardiovascular Exam: Present: regular rate, normal rhythm, normal heart sounds. Absent: systolic murmur, diastolic murmur, rubs, gallop, clicks GI/Abdominal exam: Present: soft, normal bowel sounds. Absent: distended, tenderness, guarding, rebound, rigid Extremities exam: Present: normal inspection, full ROM, normal capillary refill. Absent: tenderness, pedal edema, joint swelling, calf tenderness Back exam: Present: normal inspection Neurological exam: Present: alert, oriented X3, CN II-XII intact Psychiatric exam: Present: normal affect, normal mood Skin exam: Present: warm, dry, intact, normal color. Absent: rash <Simon Pate - Last Filed: 09/06/24 13:52> - General Exam Comments Initial Comments: Visual Physical Exam Vital signs reviewed General: Well-appearing, nontoxic, no acute distress. Head: Normocephalic, atraumatic Eyes: PERRLA, EOMI ENT: Airway patent Chest: Nonlabored breathing Skin: No visual rash, normal skin tone Neuro: Alert and oriented 3 Musculoskeletal: No gross abnormalities (Stieler,Jessica) Course <Simon Pate - Last Filed: 09/06/24 13:52> Vital Signs 08/29/24 14:56 Temperature 97.7 F Pulse Rate 68 Respiratory 16 Rate Blood Pressure 117/79 O2 Sat by Pulse 98 Oximetry - Reevaluation(s) Reevaluation #1: Medical records reviewed (Simon Pate) Reevaluation #2: Patient symptoms resolved (Simon Pate) Reevaluation #3: Patient informed of results questions answered (Simon Pate) Reevaluation #4: Was pt. sent in by a medical professional or institution (ESTELLA Petit, TEST WORKER, urgent care, hospital, or senior care...) When possible be specific @ -no Did you speak to anyone other than the patient for history (EMS, parent, family, police, friend...)? What history was obtained from this source @ -no Did you review nursing and triage notes (agree or disagree)? Why? @ -agree Are old charts reviewed (outside hosp., previous admission, EMS record, old EKG, old radiological studies, urgent care reports/EKG's, senior care records)? Report findings @ -yes Differential Diagnosis (chest pain, altered mental status, abdominal pain women, abdominal pain men, vaginal bleeding, weakness, fever, dyspnea, syncope, headache, dizziness, GI bleed, back pain, seizure, CVA, palpatations, mental health, musculoskeletal)? @ -prior EKG interpreted by me (3pts min.). @ -yes X-rays interpreted by me (1pt min.). @ -yes negative for acute disease CT interpreted by me (1pt min.). @ -no U/S interpreted by me (1pt. min.). @ -no What testing was considered but not performed or refused? (CT, X-rays, U/S, labs)? Why? @ -none What meds were considered but not given or refused? Why? @ -none Did you discuss the management of the patient with other professionals (professionals i.e. ESTELLA Petit, TEST WORKER, lab, RT, psych nurse, director of social work, entertainment lawyer, teacher, ground intelligence officer, clinical case manager)? Give summary @ -no Was smoking cessation discussed for >3mins.? @ -no Was critical care preformed (if so, how long)? @ -no Were there social determinants of health that impacted care today? How? (Homelessness, low income, unemployed, alcoholism, drug addiction, transportation, low edu. Level, literacy, decrease access to med. care, long-term, rehab)? @ -none Was there de-escalation of care discussed even if they declined (Discuss DNR or withdrawal of care, Hospice)? DNR status @ -no What co-morbidities impacted this encounter? (DM, HTN, Smoking, COPD, CAD, Cancer, CVA, ARF, Chemo, Hep., AIDS, mental health diagnosis, sleep apnea, morbid obesity)? @ -none Was patient admitted / discharged? Hospital course, mention meds given and route, prescriptions, significant lab abnormalities, going to OR and other pertinent info. @ - 44 male nonspecific chest pain no cardiac risk factors patient can be discharged home Discharge Undiagnosed new problem with uncertain prognosis? @ -no Drug Therapy requiring intensive monitoring for toxicity (Heparin, Nitro, I nsulin, Cardizem)? @ -no Were any procedures done? @ -no Diagnosis/symptom? @ -Chest pain Acute, or Chronic, or Acute on Chronic? @ -Acute Uncomplicated (without systemic symptoms) or Complicated (systemic symptoms)? @ -Complicated Side effects of treatment? @ -no Exacerbation, Progression, or Severe Exacerbation? @ -exacerbation Poses a threat to life or bodily function? How? (Chest pain, [place], PR, pneumonia, PE, COPD, DKA, ARF, appy, cholecystitis, CVA, Diverticulitis, Homicidal, Suicidal, threat to staff... and all critical care pts) @ -yes with chest pain (Simon Pate) Reevaluation #5: Differential Chest Pain: Stable Angina, Unstable Angina, STEMI, NSTEMI Aortic Dissection, Pneumothorax, Musculoskeletal, Esophageal Spasm GERD, Cholecystitis, Pancreatitis, Zoster, this is not meant to be an all-inclusive list. (Simon Pate) Chest Pain MDM <Jessica Abreu - Last Filed: 08/29/24 15:08> <Simon Pate - Last Filed: 09/06/24 13:52> - MDM I completed the quick note portion of this chart signed Jessica Abreu PA-C (Jessica Abreu) 44 male nonspecific chest pain no cardiac risk factors patient can be discharged home (Simon Pate) Disposition <Jessica Abreu - Last Filed: 08/29/24 15:08> Is patient prescribed a controlled substance at d/c from ED?: No Time of Disposition: 16:00 <Simon Pate - Last Filed: 09/06/24 13:52> Clinical Impression: Atypical chest pain, Chest pain Disposition: HOME SELF-CARE Condition: Good Instructions (If sedation given, give patient instructions): Chest Pain (ED) Referrals: Enoch Kern MD [Primary Care Provider] - 1-2 days
--- NOTE | 2024-08-29 15:26 | XR ---
EXAMINATION TYPE: XR chest 2V DATE OF EXAM: 08/29/2024 3:21 PM COMPARISON: Chest radiographs from 08/16/2022 TECHNIQUE: XR chest 2V Frontal and lateral views of the chest. CLINICAL INDICATION:Male, 44 years old with history of Chest Pain; FINDINGS: Lungs/Pleura: There is no evidence of pleural effusion, focal consolidation, or pneumothorax. Pulmonary vascularity: Unremarkable. Heart/mediastinum: Cardiomediastinal silhouette is unremarkable. Musculoskeletal: No acute osseous pathology. IMPRESSION: No acute cardiopulmonary disease/process. [facility], , 08/29/2024 3:24 PM
[2024-08-29 15:33] LABS: Basophils # (A) 0.1 k/uL (0-0.2); Basophils % (A) 1 %; Eosinophils # (A) 0.4 k/uL (0-0.7); Eosinophils % (A) 4 %; HGB 16.9 gm/dL (13.0-17.5); Lymphocytes # (A) 2.4 k/uL (1.0-4.8); Lymphocytes % (A) 28 %; MCH 28.6 pg (25.0-35.0); MCHC 33.1 g/dL (31.0-37.0); MCV 86.5 fL (80.0-100.0); Monocytes # (A) 0.5 k/uL (0-1.0); Monocytes % (A) 6 %; Neutrophils # (A) 5.2 k/uL (1.3-7.7); Neutrophils % (A) 59 %; Platelet Count 235 k/uL (150-450); RBC 5.89 m/uL (4.30-5.90); WBC 8.8 k/uL (3.8-10.6)
[2024-08-29 15:36] LABS: ALT 18 U/L (4-49); AST 25 U/L (17-59); African American GFR (CKD) >90 (>60 ml/min/1.73 sqM); Albumin 4.8 g/dL (3.5-5.0); Alkaline Phosphatase 107 U/L (38-126); Anion Gap 8 mmol/L; Blood Urea Nitrogen 17 mg/dL (9-20); Calcium 9.9 mg/dL (8.4-10.2); Carbon Dioxide 23 mmol/L (22-30); Chloride 107 mmol/L (98-107); Glucose 127 mg/dL (74-99); Lipase 112 U/L (23-300); Magnesium 2.1 mg/dL (1.6-2.3); Non-African American GFR(CKD) >90 (>60 ml/min/1.73 sqM); Potassium 4.5 mmol/L (3.5-5.1); Sodium 138 mmol/L (137-145); Total Bilirubin 0.7 mg/dL (0.2-1.3)
[2024-08-29 15:42] LABS: Partial Thromboplastin Time 22.7 sec (22.0-30.0); Prothrombin Time 10.6 sec (10.0-12.5)
== END 2024-08-29 16:20 | disposition home or self-care (01) ==
LOC: EC 14:45
DX: R07.89 Other chest pain (principal); Z87.891 Personal history of nicotine dependence
CPT/HCPCS: 36415; 71046; 80053; 83690; 83735; 84484; 85025; 85610; 85730; 93005; 99285

== ENCOUNTER → 2025-01-14 | Outpatient (CLI) | payer OTHER ==
[2025-01-14 10:04] LABS: African American GFR (CKD) >90 (>60 ml/min/1.73 sqM); Blood Urea Nitrogen 13 mg/dL (9-20); Non-African American GFR(CKD) >90 (>60 ml/min/1.73 sqM)
== END | disposition home or self-care (01) ==
LOC: RADCTMAIN 09:08
PROVIDERS: ATTEND Internal Medicine Interventional Cardiology
DX: R07.89 Other chest pain (principal); E11.51 Type 2 diabetes mellitus with diabetic peripheral angiopathy without gangrene; Z79.4 Long term (current) use of insulin
CPT/HCPCS: 82565; 84520

== ENCOUNTER → 2025-01-28 | Outpatient (CLI) | payer OTHER ==
--- NOTE | 2025-01-28 15:37 | CT ---
EXAMINATION TYPE: CT abdomen pelvis w con DATE OF EXAM: 01/28/2025 COMPARISON: None CLINICAL INDICATION: Male, 44 years old with history of R10.13 EPIGASTRIC PAIN; PHH, Poor historian. Order states epigastric pain. Pt states he only has low back pain. TECHNIQUE: Performed with Oral Contrast and with IV Contrast, patient injected with 100 ml mL of Isovue 300. CT DLP: 2590.[address] CTDI: mGy Automated exposure control for dose reduction was used. FINDINGS: The lung bases are clear. The gallbladder is normal without distention, wall thickening, pericholecystic fluid or gallstones. T here is no biliary ductal dilatation. There is no focal mass or organomegaly involving the liver, pancreas, spleen or adrenal glands. There is a 13 mm hypodensity in the left renal cortex which is too small to characterize with certain ty. It cannot be definitively classified as a simple cortical cyst and MRI of the kidneys is recommen ded for further evaluation. The caliber the abdominal aorta is normal is no retroperitoneal adenopathy or hemorrhage. The bowel loops are normal in caliber and there is no evidence of dilatation or obstruction. No infla mmatory changes are identified in the bowel wall or mesentery. There is no free intraperitoneal air or fluid. No pelvic mass, free fluid, abscess or adenopathy. The osseous structures and soft tissues are intact. IMPRESSION: 1. 13 hypodensity within the left renal cortex. Likely a cyst but too small to characterize with cert ainty. MRI of the kidneys is recommended for further evaluation. 2. No acute changes within the abdomen or pelvis. [facility], , 01/28/2025 3:34 PM
== END | disposition home or self-care (01) ==
LOC: RADCTMAIN 13:20
PROVIDERS: ATTEND Surgery
DX: R10.13 Epigastric pain (principal); N28.89 Other specified disorders of kidney and ureter
CPT/HCPCS: 74177; Q9967

== ENCOUNTER → 2025-01-30 | Day surgery (SDC) | payer OTHER ==
[~2025-01-30] MED LIST changes: -ACETAMINOPHEN TAB 500 MG TAB PO PRN; -DEXAMETHASONE SOD PHOSPHATE 4 MG/ML 1 ML VIAL IV ONE; -HEPARIN SODIUM,PORCINE/PF 5,000 UNIT/0.5 ML SYRINGE SQ PRN; -HYDROmorphone 0.5 MG/0.5 ML SYRINGE IVP PRN; +LIDOCAINE 1% (10MG/ML) FOR IV START INTRADERMA PRN; +LIDOCAINE 1% INJ 10MG/ML (20 ML MDV) ONE; -MIDAZOLAM 2 MG/2 ML VIAL IV PRN; -ONDANSETRON 4 MG/2 ML VIAL IVP ONE; +PROPOFOL 10 MG/ML 20 ML VIAL IV ONE; -SCOPOLAMINE 1 MG/72 HR PATCH TRANSDERM ONE; -ceFAZolin 3 GM in SODIUM CHLORIDE 0.9% 100 ML IVPB PRN
[2025-01-30] MEDS: LACTATED RINGERS 1,000 ML IV SCH (07:17)
[2025-01-30] MEDS: IV FLUID CONTINUATION 1,000 ML IV ONE ×2 (07:17→08:06)
[2025-01-30 07:20] VITALS: TEMP 97.7
[2025-01-30 07:22] LABS: Glucose,Whole Blood 159 mg/dL (70-110)
--- NOTE | 2025-01-30 08:11 | P.GSHP ---
History of Present Illness H&P Date: 01/30/25 Chief Complaint: History of gerd, epigastric pain, screening colonoscopy This a 44-year-old male who has had complaints of gerd epigastric pain. Patient has a for EGD. He is also gerd for screening colonoscopy. Past Medical History Past Medical History: Chest Pain / Angina, COPD, Diabetes Mellitus, GERD/Reflux, Hyperlipidemia, Hypertension, Osteoarthritis (OA) Additional Past Medical History / Comment(s): hx. hiatal hernia - Nancy, sleep apnea test in future History of Any Multi-Drug Resistant Organisms: None Reported Past Surgical History: Orthopedic Surgery Additional Past Surgical History / Comment(s): Left knee surgery, EGD, Nancy (10/17/22) Past Anesthesia/Blood Transfusion Reactions: No Reported Reaction Smoking Status: Former smoker - Past Family History Mother Family Medical History: Cancer Medications and Allergies Home Medications Medication Instructions Recorded Confirmed Type Albuterol Inhaler [Ventolin Hfa 2 puff INHALATION Q6H PRN 09/10/21 01/30/25 History Inhaler] Aspirin EC [Ecotrin Low Dose] 81 mg PO DAILY 09/10/21 01/30/25 History Budesonide/Formoterol Fumarate 2 puff INHALATION BID 09/10/21 01/30/25 History [Symbicort 160-4.5 Mcg Inhaler] Omeprazole 40 mg PO DAILY 09/10/21 01/30/25 History buPROPion HCL [Wellbutrin XL] 450 mg PO DAILY 09/10/21 01/30/25 History lisinopriL [Zestril] 20 mg PO DAILY 09/10/21 01/30/25 History Atorvastatin [Lipitor] 80 mg PO DAILY 11/10/21 01/30/25 History Metoprolol Tartrate [Lopressor] 25 mg PO BID 30 Days #60 tab 11/11/21 01/30/25 Rx Nitroglycerin Sl Tabs [Nitrostat] 0.4 mg SUBLINGUAL Q5M PRN #30 tab 11/11/21 01/30/25 Rx Dapagliflozin Propanediol [Farxiga] 5 mg PO DAILY 12/17/21 01/30/25 History HYDROcodone/APAP 5-325MG [[place] 1 tab PO Q6HR PRN 3 Days #12 tab 10/18/22 01/30/25 Rx 5-325] Dulaglutide [Trulicity] 1.5 mg SQ TH 01/27/25 01/30/25 History Naproxen [EC-Naproxen] 500 mg PO DAILY 01/27/25 01/30/25 History Allergies Allergy/AdvReac Type Severity Reaction Status Date / Time No Known Allergies Allergy Verified 01/30/25 07:04 Surgical - Exam Vital Signs Temp Pulse Resp BP Pulse Ox 97.7 F 82 20 105/71 100 01/30/25 07:18 01/30/25 07:18 01/30/25 07:18 01/30/25 07:18 01/30/25 07:18 - General well developed, well nourished, no distress - Eyes PERRL - ENT normal pinna, normal nares - Neck no masses - Respiratory normal expansion - Cardiovascular Rhythm: regular - Abdomen Abdomen: soft, non tender Results - Labs Abnormal Lab Results - Last 24 Hours (Table) 01/30/25 Range/Units 07:12 POC Glucose (mg/dL) 159 H (70-110) mg/dL Assessment and Plan Plan: Gerd, epigastric pain. Will perform EGD. Will perform screening colonoscopy.
--- NOTE | 2025-01-30 08:41 | P.OP ---
Date of Procedure: 01/30/25 Preoperative Diagnosis: Gerd Epigastric pain Screening colonoscopy Postoperative Diagnosis: Antral gastritis Mild diverticulosis Procedure(s) Performed: EGD Colonoscopy Anesthesia: MAC Surgeon: Merrill Paiz Pathology: other (Antrum) Condition: stable Disposition: PACU Description of Procedure: The patient was placed on the endoscopy table in the lateral position. He received IV sedation. The gas was placed oropharynx passed in the esophagus and the stomach. The scope was placed through the pylorus. The 1st and 2nd portion of the duodenum appeared normal. Scope was brought back to the antrum this was mildly Flaim. A biopsy was performed. The scope was then retroflexed and the Mainer of the stomach appeared normal. The GE junction was at 40 cm. The distal esophagus appeared normal. The proximal esophagus appeared normal. Scope withdrawn for the patient. Next digital rectal exam was performed. This revealed no abnormality. Flexible colonoscope was then placed patient anus and passed throughout the entire colon. The ileocecal valve was visualized. The appendiceal orifice was seen. The scope was withdrawn. The cecum appeared normal. The right colon appeared normal. In the transverse and descending colon there is a few scattered diverticuli. There is a few scattered diverticuli in the sigmoid colon. Scope back the rectum this appeared normal. Scope withdrawn the patient.
[2025-01-30 09:11] VITALS: RESP 16
[2025-01-30 09:12] VITALS: BP 110/71; PULSE 78
== END | disposition home or self-care (01) ==
LOC: ORWHC2ENDO 06:43
PROVIDERS: ATTEND Surgery
DX: Z12.11 Encounter for screening for malignant neoplasm of colon (principal); K57.30 Diverticulosis of large intestine without perforation or abscess without bleeding; K29.50 Unspecified chronic gastritis without bleeding; K21.9 Gastro-esophageal reflux disease without esophagitis; M19.90 Unspecified osteoarthritis, unspecified site; J44.9 Chronic obstructive pulmonary disease, unspecified; I10 Essential (primary) hypertension; E78.5 Hyperlipidemia, unspecified; E11.9 Type 2 diabetes mellitus without complications; F32.A Depression, unspecified; G47.33 Obstructive sleep apnea (adult) (pediatric); Z79.1 Long term (current) use of non-steroidal anti-inflammatories (NSAID); Z79.51 Long term (current) use of inhaled steroids; Z79.84 Long term (current) use of oral hypoglycemic drugs; Z87.891 Personal history of nicotine dependence; Z79.899 Other long term (current) drug therapy
CPT/HCPCS: 88305; 45378; 43239; J2003; J2704

== ENCOUNTER → 2025-02-12 | Outpatient (CLI) | payer OTHER ==
--- NOTE | 2025-02-12 12:01 | NM ---
EXAMINATION TYPE: NM hepatobiliary w CCK DATE OF EXAM: 02/12/2025 COMPARISON: CT abdomen and pelvis January 28, 2025 CLINICAL INDICATION: Male, 44 years old with history of K29.70 GASTRITIS, UNSPECIFIED, WITHOUT BLEEDI NG; epigastric pain with change in appetite TECHNIQUE: After the intravenous administration of 5.5 mCi Tc 99m Mebrofenin hepatobiliary scintigrap hy is performed. Immediate images post injection. FINDINGS: There is satisfactory initial accumulation of tracer by the liver. The gallbladder is visualized wit hin 10 minutes. The small bowel activity is noted within 60 minutes. At one hour CCK was administer ed, patient was injected with 2.55 mcg of Kinevac, and gallbladder ejection fraction is calculated at 75 %, not diminished from the normal range. Therefore there is no scintigraphic evidence of cystic or common bile duct obstruction to suggest acute cholecystitis or gallbladder hypokinesia. IMPRESSION: As above. [facility], , 02/12/2025 11:58 AM
== END | disposition home or self-care (01) ==
LOC: RADNMMAIN 02-04 07:03
PROVIDERS: ATTEND Surgery
DX: K30 Functional dyspepsia (principal); R10.9 Unspecified abdominal pain
CPT/HCPCS: 78227; A9537; J2805

== ENCOUNTER → 2025-04-15 | Outpatient (CLI) | payer OTHER ==
[2025-04-15 13:46] VITALS: BP 112/75; PULSE 82; RESP 16; TEMP 97.8
--- NOTE | 2025-04-15 15:12 | P.SLEEP ---
History of Present Illness H&P Date: 04/15/25 This is a 45-year-old male patient, obese with a BMI of 38.7, coming in for sleep apnea evaluation. The patient is accompanied by his sister. The patient is currently on medical disability. The patient has chronic learning disability, unable to read or write at this point. The patient has been feeling excessively fatigued and sleepy during the day. He goes to bed at 8 PM and gets out of bed at 5 AM in the morning and occasionally takes naps during the day and these are 32 minutes to 1 hour nap. The patient snores and he has been noted to quit breathing during sleep. Sleep is fragmented and the patient also grinds his teeth and has occasional heartburn. He has been also noted to have some symptoms of sleep talking. No sleepwalking. No aggressive behavior during sleep. No sleep paralysis. No hallucinations. No cataplexy. He has gained around 50 pounds over the past 1 year. He has other complaints this including diabetes mellitus type 2, hypertension, hyperlipidemia, COPD and the patient is a former smoker and the patient suffers from chronic back pain. The patient also has a positive family history for obstructive sleep apnea. The patient is a mouth breather. He wakes up with a dry mouth. He feels refreshed and fatigued throughout the day. He is currently living with his father and is and has 1 child. His current [place] score is at 3. Patient is able to drive. The patient denies fall asleep while driving as the patient covers only short distances. No history of any motor vehicle accidents because of feeling drowsy or sleepy. Review of Systems Constitutional: Reports daytime sleepiness, Reports fatigue, Reports weight gain Eyes: denies as per HPI, denies blurred vision, denies bulging eye, denies decreased vision, denies diplopia, denies discharge, denies dry eye, denies irr itation, denies itching, denies pain, denies photophobia, denies loss of peripheral vision, denies loss of vision, denies tunnel vision/blind spots Ears: deny: decreased hearing, ear discharge, earache, tinnitus Ears, nose, mouth and throat: Reports as per HPI Breasts: absent: as per HPI, gynecomastia Cardiovascular: Reports as per HPI Respiratory: Reports as per HPI, Reports snoring Gastrointestinal: Reports as per HPI Genitourinary: Reports as per HPI Musculoskeletal: Reports as per HPI Musculoskeletal: absent: ankle pain, ankle stiffness, ankle swelling, as per HPI, elbow pain, elbow stiffness, elbow swelling, foot pain, foot stiffness, foot swelling, hand pain, hand stiffness, hand swelling, hip pain, hip stiffness, hip swelling, knee pain, knee stiffness, knee swelling, shoulder pain, shoulder stiffness, shoulder swelling, wrist pain, wrist stiffness, wrist swelling Integumentary: Reports as per HPI Neurological: Reports as per HPI Psychiatric: Reports as per HPI Endocrine: Reports as per HPI, Reports fatigue Hematologic/Lymphatic: Reports as per HPI Allergic/Immunologic: Reports as per HPI Past Medical History Past Medical History: COPD, Diabetes Mellitus, GERD/Reflux, Hyperlipidemia, Hypertension, Osteoarthritis (OA) Additional Past Medical History / Comment(s): hx. hiatal hernia - Nancy, sleep apnea test in future History of Any Multi-Drug Resistant Organisms: None Reported Past Surgical History: Orthopedic Surgery Additional Past Surgical History / Comment(s): Left knee surgery, EGD, Nancy (10/17/22) Past Anesthesia/Blood Transfusion Reactions: No Reported Reaction Past Psychological History: Depression Smoking Status: Former smoker Past Alcohol Use History: None Reported Additional Past Alcohol Use History / Comment(s): Quit smoking in 2019. Past Drug Use History: None Reported - Past Family History Mother Family Medical History: Cancer Father Additional Family Medical History / Comment(s): arthritis ? Medications and Allergies Home Medications Medication Instructions Recorded Confirmed Type Albuterol Inhaler [Ventolin Hfa 2 puff INHALATION Q6H PRN 09/10/21 04/15/25 History Inhaler] Aspirin EC [Ecotrin Low Dose] 81 mg PO DAILY 09/10/21 04/15/25 History Budesonide/Formoterol Fumarate 2 puff INHALATION BID 09/10/21 04/15/25 History [Symbicort 160-4.5 Mcg Inhaler] Omeprazole 40 mg PO DAILY 09/10/21 04/15/25 History buPROPion HCL [Wellbutrin XL] 450 mg PO DAILY 09/10/21 04/15/25 History lisinopriL [Zestril] 20 mg PO DAILY 09/10/21 04/15/25 History Atorvastatin [Lipitor] 80 mg PO DAILY 11/10/21 04/15/25 History Metoprolol Tartrate [Lopressor] 25 mg PO BID 30 Days #60 tab 11/11/21 04/15/25 Rx Nitroglycerin Sl Tabs [Nitrostat] 0.4 mg SUBLINGUAL Q5M PRN #30 tab 11/11/21 04/15/25 Rx Dapagliflozin Propanediol [Farxiga] 5 mg PO DAILY 12/17/21 04/15/25 History HYDROcodone/APAP 5-325MG [[place] 1 tab PO Q6HR PRN 3 Days #12 tab 10/18/22 04/15/25 Rx 5-325] Dulaglutide [Trulicity] 1.5 mg SQ TH 01/27/25 04/15/25 History Naproxen [EC-Naproxen] 500 mg PO DIRECTED PRN 01/27/25 04/15/25 History Allergies Allergy/AdvReac Type Severity Reaction Status Date / Time No Known Allergies Allergy Verified 01/30/25 07:04 Physical Exam Vitals: Vital Signs Temp Pulse Resp BP Pulse Ox 04/15/25 13:45 97.8 F 82 16 112/75 96 Intake and Output 04/15/25 04/15/25 04/15/25 06:59 14:59 22:59 Other: Weight 126.552 kg The patient appeared well nourished and normally developed. Vital signs as documented. The patient has a Mallampati class IV with crowding of the posterior pharynx. The patient is morbidly obese with a body mass index of 38.6. Head exam is unremarkable. No scleral icterus or corneal arcus noted. Neck is without jugular venous distension, thyromegaly, or carotid bruits. Carotid upstrokes are brisk bilaterally. Lungs are clear to auscultation and percussion. Cardiac exam reveals the PMI to be normally sized and situated. Rhythm is regular. First and second heart sounds normal. No murmurs, rubs or gallops. Abdominal exam reveals normal bowel sounds, no masses, no organomegaly and no aortic enlargement. Extremities are nonedematous and both femoral and pedal pulses are normal. Examination of the skin revealed no evidence of significant rashes, suspicious appearing nevi or other concerning lesions. Neurologically, the patient is awake and alert and the patient does not have any focal neurological deficit. Cranial nerves are essentially intact. Assessment and Plan Plan: Chronic hypersomnia with typical features of obstructive sleep apnea the patient will need further investigation. Loud snoring, with a Mallampati class IV and crowded posterior pharynx. Sleep fragmentation Morbid obesity with a BMI of 38 Diabetes mellitus type 2 Hypertension Hyperlipidemia COPD and the patient is a former smoker Chronic back pain Positive family history for obstructive sleep apnea/mother. Plan Encourage weight loss Maintain good sleep hygiene measures Maintain regular sleep schedule Optimize comorbidities Proceed with a screening polysomnography and there is an increased risk for obstructive sleep apnea in this patient. Sleep Note - Sleep Data ESS Total: 3 - Sleep Note Sleep Note: Temperature: 97.8 F Pulse Rate: 82 Respiratory Rate: 16 Blood Pressure: 112/75 SpO2: 96 Height: 5 ft 11.2 in Weight: 126.552 kg BMI: Neck Circumference: 19
== END ==
LOC: 3 N SLEEP 13:28
PROVIDERS: ATTEND Internal Medicine
DX: G47.33 Obstructive sleep apnea (adult) (pediatric) (principal); E66.01 Morbid (severe) obesity due to excess calories; E11.9 Type 2 diabetes mellitus without complications; I10 Essential (primary) hypertension; E78.5 Hyperlipidemia, unspecified; J44.9 Chronic obstructive pulmonary disease, unspecified; G89.29 Other chronic pain; M54.9 Dorsalgia, unspecified; Z83.6 Family history of other diseases of the respiratory system; Z68.38 Body mass index [BMI] 38.0-38.9, adult
CPT/HCPCS: 99211